=== PATIENT | female | born 1980 | race African-American/Black ===

== ENCOUNTER → 2016-09-19 | Outpatient (CLI) | payer OTHER ==
[~2016-09-19] MED LIST: ALPR-411 PO; CEFD300C2 PO; CYCL10TA6 PO; LEVO500T78 PO; METH1TAB81 PO; METR-162 PO; MULT-506 PO; OMEP20CA59 PO; OMEP40CA PO; OMEP40CA41 PO; OXYC1TAB3 PO; PROB1TAB16 PO; RANI300T2 PO; SULF800T23 PO; VNTHFA/IN INH; ZNTT/150 PO
[2016-09-19 13:20] LABS: BASO % 0.4 %; BASO ABS # 0.02 K/uL (0-0.2); COMPLETE YES; HEMATOCRIT 36.3 % (37-47); LYMPH % 43.9 %; LYMPH ABS # 2.21 K/uL (1.2-3.4); MEAN CORPUSCULAR HEMOGLOBIN 30.1 pg (25-34); MEAN CORPUSCULAR HGB CONC 33.1 g/dl (32-36); MEAN PLATELET VOLUME 11.3 fL (7.4-10.4); MONO % 6.4 %; NEUT % 47.3 %; PLATELET COUNT 201 K/uL (130-400); RED BLOOD COUNT 3.99 M/uL (4.2-5.4); WHITE BLOOD COUNT 5.03 K/uL (4.8-10.8)
[2016-09-19 13:54] LABS: BLOOD UREA NITROGEN 12 mg/dl (7-18); CREATININE 0.92 mg/dl (0.60-1.20); GLUCOSE 86 mg/dl (70-99)
[2016-09-19 13:55] LABS: AST/SGOT 10 U/L (15-37); BUN/CREATININE RATIO 12.9 (10-20); CALCIUM 8.3 mg/dl (8.5-10.1); CARBON DIOXIDE 28 mmol/L (21-32); CHLORIDE 108 mmol/L (98-107); POTASSIUM 4.3 mmol/L (3.5-5.1); SODIUM 141 mmol/L (136-145)
[2016-09-19 14:09] LABS: ALB/GLOB RATIO 0.9 (0.9-2); ALKALINE PHOSPHATASE 66 U/L (45-117); ALT/SGPT 24 U/L (12-78)
== END | disposition home or self-care (01) ==
LOC: C.LAB1850 11:56
PROVIDERS: ATTEND Internal Medicine
DX: Z85.3 Personal history of malignant neoplasm of breast (principal); D64.9 Anemia, unspecified

== ENCOUNTER 2016-10-13 09:02 | Emergency (ER) | payer OTHER ==
[~2016-10-13] VITALS: Ht 167.6 cm; Wt 82.6 kg
[~2016-10-13 09:02] MED LIST changes: -ALPR-411 PO; -CEFD300C2 PO; -CYCL10TA6 PO; -LEVO500T78 PO; -METH1TAB81 PO; -METR-162 PO; -MULT-506 PO; -OMEP20CA59 PO; -OMEP40CA41 PO; -OXYC1TAB3 PO; -PROB1TAB16 PO; -SULF800T23 PO; -VNTHFA/IN INH; -ZNTT/150 PO
[2016-10-13 09:13] VITALS: TEMP 36.8; Ht 167.6 cm; Wt 82.6 kg
[2016-10-13] MEDS ORDERED: SODIUM CHLORIDE 0.9% 1000ML 1,000 ML IV STA ×2 (09:34)
[2016-10-13] MEDS ORDERED: KETOROLAC TROMETHAMINE 30 MG/ML VIAL IV STA (09:34)
--- NOTE | 2016-10-13 09:43 | EMERGENCY ROOM VISIT NOTE ---
History Report prepared by Flora: Cristiano José Under the Supervision of: Dr. Chetan Alegria M.D. First contact with patient: 09:31 Chief Complaint: ABDOMINAL PAIN Stated Complaint: EXTREME ABD PAIN AND NAUSEA Nursing Triage Summary: Pt presents with lower abd pain/cramping with nausea and "a little diarrhea". Sx began yesterday. Currently has menstrual cycle, "this feels different then period cramps. I've been taking Tylenol." History of Present Illness The patient is a 36 year old female who presents to the Emergency Room with complaints of constant lower abdominal pain since yesterday. The pain is described as extreme and radiates to her back. She also complains of nausea but she has not vomited. She also feels some pressure with urination and frequency. The patient started her menstrual period yesterday. She initially thought that her pain was secondary to menstrual cramps, however that pain has never been this severe. Her pain was not relieved with Tylenol, which usually works for menstrual pain. The patient denies coughs, congestion, or other symptoms. She has a history of breast cancer and ovarian cysts. Her last ovarian cyst was over one year ago. She has a history of laparoscopy but no other surgeries of the abdomen or pelvis. Her mother has history of endometriosis but the patient does not. She has no known allergies. Source of History: patient Onset: yesterday Position: abdomen (lower) Symptom Intensity: extreme Timing: constant Associated Symptoms: + nausea, + urinary symptoms, No cough, No vomiting Review of Systems See HPI for pertinent positives & negatives. A total of 10 systems reviewed and were otherwise negative. Past Medical & Surgical Medical Problems: (1) ACUTE CHEMICAL CONJUNCTIVITIS (2) Asthma (3) Breast cancer (4) Bronchitis (5) Gastroesophageal reflux disease (6) History of - hypertension (7) History of - pneumonia (8) Mononucleosis (9) OVARIAN CYST NEC/NOS (10) Rhabdomyolysis (11) Urinary tract infection Family History FHx: cancer Social History Smoking Status: Never Smoker Alcohol Use: none Drug Use: none Marital Status: Housing Status: lives with family Occupation Status: employed Current/Historical Medications Scheduled Probiotic Product (Probiotic), 1 TAB PO DAILY Ranitidine (Zantac), 300 MG PO HS Scheduled PRN Alprazolam (Xanax), 0.5 MG PO Q8 PRN for Anxiety/Insomnia Cyclobenzaprine Hcl (Flexeril), 10 MG PO TID PRN for Muscle Spasms Oxycodone Ir (Roxicodone Ir), 1 TAB PO Q4H PRN for Pain Allergies Coded Allergies: No Known Allergies (Unverified , 10/13/16) Physical Exam Vital Signs Date Time Temp Pulse Resp B/P Pulse Ox O2 Delivery O2 Flow Rate FiO2 10/13/16 12:53 74 18 124/68 98 Room Air 10/13/16 11:01 61 16 122/63 99 Room Air 10/13/16 09:13 36.8 73 18 114/70 98 Room Air Physical Exam GENERAL: Patient is in mild distress secondary to pain. HEENT: No acute trauma, normocephalic atraumatic, mucous membranes are dry, no nasal congestion, no scleral icterus. NECK: No stridor, no adenopathy, no meningismus, trachea is midline. LUNGS: Clear to auscultation bilaterally, no wheeze, no rhonchi, breath sounds equal. HEART: Without murmurs gallops or rubs, regular rate and rhythm. ABDOMEN: Soft, moderate tenderness to the lower abdomen / pelvis bilaterally, bowel sounds positive, no hernias, no peritonitis. EXTREMITIES: No cyanosis or edema, full range of motion of all the joints without pain or difficulty, no signs for acute trauma. NEUROLOGIC: Oriented x 3, no acute motor or sensory deficits, no focal weakness. SKIN: No rash, no jaundice, no diaphoresis. Medical Decision & Procedures ER Provider Diagnostic Interpretation: Radiology results as stated below per my review and radiologist interpretation: EXAMINATION: PELVIC ULTRASOUND (transabdominal and endovaginal scanning) CLINICAL HISTORY: Pain, nausea, vomiting, diarrhea. COMPARISON STUDY: 01/21/2016 FINDINGS: The uterus measured 12.3 x 5.7 x 6.1 cm there is a 2 cm left-sided fibroid.. The endometrial stripe measured 5 mm. The right ovary measured 36 x 65 x 31 mm. There is a 29 x 49 x 27 mm cyst containing a few septations.. The left ovary measured 15 x 41 x 15 mm.. There is no ultrasonographic evidence of ovarian torsion. It should be noted that ovarian torsion can be present with normal Doppler ultrasonographic findings. There was no evidence of pathologic free pelvic fluid. IMPRESSION: 1. Stable 2 cm left-sided uterine fibroid 2. 49 mm right ovarian cystic lesion containing a few septations. In a premenopausal patient, this is likely benign. 3. Ultrasonographically normal left ovary Electronically signed by: Melvin Ahmadi M.D. 10/13/2016 10:58 AM Dictated Date/Time: 10/13/2016 10:51 AM Laboratory Results 10/13/16 09:32 Red Blood Count 4.14, Mean Corpuscular Volume 90.8, Mean Corpuscular Hemoglobin 30.0, Mean Corpuscular Hemoglobin Concent 33.0, Mean Platelet Volume 10.4, Neutrophils (%) (Auto) 51.9, Lymphocytes (%) (Auto) 40.1, Monocytes (%) (Auto) 5.7, Eosinophils (%) (Auto) 2.1, Basophils (%) (Auto) 0.2, Neutrophils # (Auto) 2.99, Lymphocytes # (Auto) 2.31, Monocytes # (Auto) 0.33, Eosinophils # (Auto) 0.12, Basophils # (Auto) 0.01 10/13/16 09:32 Test 10/13/16 09:32 10/13/16 11:47 White Blood Count 5.76 K/uL (4.8-10.8) Red Blood Count 4.14 M/uL (4.2-5.4) Hemoglobin 12.4 g/dL (12.0-16.0) Hematocrit 37.6 % (37-47) Mean Corpuscular Volume 90.8 fL (80-100) Mean Corpuscular Hemoglobin 30.0 pg (25-34) Mean Corpuscular Hemoglobin Concent 33.0 g/dl (32-36) Platelet Count 225 K/uL (130-400) Mean Platelet Volume 10.4 fL (7.4-10.4) Neutrophils (%) (Auto) 51.9 % Lymphocytes (%) (Auto) 40.1 % Monocytes (%) (Auto) 5.7 % Eosinophils (%) (Auto) 2.1 % Basophils (%) (Auto) 0.2 % Neutrophils # (Auto) 2.99 K/uL (1.4-6.5) Lymphocytes # (Auto) 2.31 K/uL (1.2-3.4) Monocytes # (Auto) 0.33 K/uL (0.11-0.59) Eosinophils # (Auto) 0.12 K/uL (0-0.5) Basophils # (Auto) 0.01 K/uL (0-0.2) RDW Standard Deviation 48.5 fL (36.4-46.3) RDW Coefficient of Variation 14.4 % (11.5-14.5) Immature Granulocyte % (Auto) 0.0 % Immature Granulocyte # (Auto) 0.00 K/uL (0.00-0.02) Anion Gap 6.0 mmol/L (3-11) Est Creatinine Clear Calc Drug Dose 87.0 ml/min Estimated GFR () 88.1 Estimated GFR (Non- 76.0 BUN/Creatinine Ratio 14.5 (10-20) Calcium Level 9.1 mg/dl (8.5-10.1) Total Bilirubin 0.4 mg/dl (0.2-1) Aspartate Amino Transf (AST/SGOT) 7 U/L (15-37) Alanine Aminotransferase (ALT/SGPT) 32 U/L (12-78) Alkaline Phosphatase 73 U/L (45-117) Total Protein 7.7 gm/dl (6.4-8.2) Albumin 3.5 gm/dl (3.4-5.0) Globulin 4.2 gm/dl (2.5-4.0) Albumin/Globulin Ratio 0.8 (0.9-2) Lipase 128 U/L (73-393) Human Chorionic Gonadotropin, Qual NEG (NEG) Urine Color RASHIDA Urine Appearance CLOUDY (CLEAR) Urine pH 5.0 (4.5-7.5) Urine Specific [place] 1.020 (1.000-1.030) Urine Protein NEG (NEG) Urine Glucose (UA) NEG (NEG) Urine Ketones TRACE (NEG) Urine Occult Blood 3+ (NEG) Urine Nitrite NEG (NEG) Urine Bilirubin NEG (NEG) Urine Urobilinogen NEG (NEG) Urine Leukocyte Esterase MODERATE (NEG) Urine WBC (Auto) >30 /hpf (0-5) Urine RBC (Auto) >30 /hpf (0-4) Urine Hyaline Casts (Auto) 1-5 /lpf (0-5) Urine Epithelial Cells (Auto) >30 /lpf (0-5) Urine Bacteria (Auto) 1+ (NEG) Urine Renal Epithelial Cells /lpf (0-5) Laboratory results reviewed by me. Medications Administered Medications (Trade) Dose Ordered Sig/Claudia Route Start Time Stop Time Status Last Admin Dose Admin Ondansetron HCl 4 mg 4 mg ONE ONCE PO 10/13/16 09:45 10/13/16 09:46 DC 10/13/16 09:43 4 MG Sodium Chloride 1,000 ml @ 200 mls/hr Q5H STAT IV 10/13/16 09:34 10/13/16 14:00 DC 10/13/16 11:02 200 MLS/HR Sodium Chloride (Nss 1000ml) 1,000 ml @ 999 mls/hr Q1H1M STAT IV 10/13/16 09:34 10/13/16 10:34 DC 10/13/16 09:45 999 MLS/HR Morphine Sulfate (MoRPHine SULFATE INJ) 4 mg Q30M PRN IV 10/13/16 09:45 10/13/16 14:00 DC 10/13/16 12:03 4 MG Ketorolac Tromethamine (Toradol Inj) 30 mg NOW STAT IV 10/13/16 09:34 10/13/16 09:38 DC 10/13/16 09:45 30 MG ED Course 0933: The patient was evaluated in room B12b. A complete history and physical exam was performed. 0934: Toradol 30 mg IV, NSS 1000 ml @ 999 mls/hr, NSS 1000 ml @ 200 mls/hr. 0945: Morphine Sulfate 4 mg IV, Zofran Odt 4 mg PO. 1148: The patient looks much more comfortable. She will give a urine sample.\\ 1252: The prescription drug monitoring program was evaluated for this patient. 1305: Reevaluated the patient. Discussed results and discharge instructions: She verbalized understanding and agreement. The patient is ready for discharge. Medical Decision Differential diagnosis includes menstrual cramps, , dehydration, uterine spasm, ovarian cyst, ovarian torsion, UTI, dehydration, appendicitis, PID. There is no leukocytosis or concerning anemia. No significant electrolyte abnormality or kidney failure. There is no hepatitis or pancreatitis. Urinalysis shows contamination, no obvious infection, urine culture is pending. Pelvic ultrasound shows a right sided ovarian cyst, no evidence for ovarian torsion. No significant free pelvic fluid seen. testing was negative. The patient received IV saline, IV Toradol, IV morphine and IV Zofran, she is more comfortable. The patient is likely having pain secondary to her menstrual cycle coupled with the ovarian cyst. Certainly, she may have some endometriosis. She is nontoxic , she is not febrile. She looks well since having her pain controlled. She is being discharged with OB follow-up. She is going to use a few oxycodone for severe pain, Tylenol and heat were suggested, she was given a few Flexeril which have helped her in the past when she has had issues similar to today's. The patient was encouraged to return for worsening symptoms or complaints. We will call her with any positive urine culture results. [place] Drug Monitoring Program Search Results: patient reviewed within database, no issues identified Impression Primary Impression: Lower abdominal pain Additional Impressions: Pelvic cramping Ovarian cyst Scribe Attestation The scribe's documentation has been prepared under my direction and personally reviewed by me in its entirety. I confirm that the note above accurately reflects all work, treatment, procedures, and medical decision making performed by me. Departure Information Dispostion Home / Self-Care Prescriptions Cyclobenzaprine Hcl (FLEXERIL) 10 Mg Tab 10 MG PO TID Y for Muscle Spasms, #10 TAB Prov: Chetan Alegria M.D. 10/13/16 Oxycodone Ir (Roxicodone Ir) 5 Mg Tab 1 TAB PO Q4H Y for Pain, #10 TAB Prov: Chetan Alegria M.D. 10/13/16 Referrals RV. Hernández MD (PCP) Forms Call Back Authorization, HOME CARE DOCUMENTATION FORM, IMPORTANT VISIT INFORMATION Patient Instructions My [facility] Additional Instructions heat may help call ob and set up an appt for a recheck of the cyst oxy ir 1 tab every 4 hours for severe pain may use tylenol for pain as well flexeril 1 tab up to 3x per day for muscle spasm return for worsening symptoms, vomiting or fever Problem Qualifiers
[2016-10-13] MEDS ORDERED: ONDANSETRON 4MG OD TAB PO ONE (09:45)
[2016-10-13] MEDS: MoRPHine SULFATE 4 MG/ML 1 ML CARP\\VIAL IV PRN ×4 (09:45→12:03)
[2016-10-13] MEDS ORDERED: PROB1TAB16 PO (09:58)
[2016-10-13 09:59] LABS: BASO % 0.2 %; BASO ABS # 0.01 K/uL (0-0.2); COMPLETE YES; EOS % 2.1 %; HEMATOCRIT 37.6 % (37-47); LYMPH % 40.1 %; LYMPH ABS # 2.31 K/uL (1.2-3.4); MEAN CELL VOLUME 90.8 fL (80-100); MEAN PLATELET VOLUME 10.4 fL (7.4-10.4); MONO % 5.7 %; NEUT % 51.9 %; PLATELET COUNT 225 K/uL (130-400); RED BLOOD COUNT 4.14 M/uL (4.2-5.4); WHITE BLOOD COUNT 5.76 K/uL (4.8-10.8)
[2016-10-13 10:19] LABS: BUN/CREATININE RATIO 14.5 (10-20); CALCIUM 9.1 mg/dl (8.5-10.1); CREATININE 0.95 mg/dl (0.60-1.20); POTASSIUM 4.1 mmol/L (3.5-5.1); PREG INTERNAL NEGATIVE QC NEG CLEAR BACKGROUND; PREG INTERNAL POSITIVE QC POS CONTROL LINE
[2016-10-13 10:22] LABS: ALB/GLOB RATIO 0.8 (0.9-2)
--- NOTE | 2016-10-13 10:59 | DIAGNOSTIC IMAGING REPORT ---
EXAMINATION: PELVIC ULTRASOUND (transabdominal and endovaginal scanning) CLINICAL HISTORY: Pain, nausea, vomiting, diarrhea. COMPARISON STUDY: 01/21/2016 FINDINGS: The uterus measured 12.3 x 5.7 x 6.1 cm there is a 2 cm left-sided fibroid.. The endometrial stripe measured 5 mm. The right ovary measured 36 x 65 x 31 mm. There is a 29 x 49 x 27 mm cyst containing a few septations.. The left ovary measured 15 x 41 x 15 mm.. There is no ultrasonographic evidence of ovarian torsion. It should be noted that ovarian torsion can be present with normal Doppler ultrasonographic findings. There was no evidence of pathologic free pelvic fluid. IMPRESSION: 1. Stable 2 cm left-sided uterine fibroid 2. 49 mm right ovarian cystic lesion containing a few septations. In a premenopausal patient, this is likely benign. 3. Ultrasonographically normal left ovary Electronically signed by: Melvin Ahmadi M.D. 10/13/2016 10:58 AM Dictated Date/Time: 10/13/2016 10:51 AM
[2016-10-13 12:16] LABS: URINE APPEARANCE CLOUDY (CLEAR); URINE BILIRUBIN NEG (NEG); URINE EPITHELIAL CELL AUTO >30 /lpf (0-5); URINE NITRITE NEG (NEG); UROBILINOGEN NEG (NEG); ZZUR CULT IF INDIC CLEAN CATCH YES
[2016-10-13 12:41] LABS: MANUAL MICROSCOPIC REQUIRED? NO; REVIEW REQ? YES; URINE COLOR AMBER
[2016-10-13 12:53] VITALS: BP 124/68; PULSE 74; O2SAT 98
[2016-10-13] MEDS ORDERED: OXYC1TAB3 PO (13:12)
[2016-10-13] MEDS ORDERED: CYCL10TA6 PO (13:12)
[2017-02-14] MEDS ORDERED: LEVO500T78 PO (11:01)
[2017-02-14] MEDS ORDERED: METH1TAB81 PO (11:01)
[2017-04-21] MEDS ORDERED: VNTHFA/IN INH (11:01)
[2017-04-21] MEDS ORDERED: ZNTT/150 PO (11:01)
[2017-04-21] MEDS ORDERED: OMEP40CA41 PO (11:01)
[2017-04-21] MEDS ORDERED: ALPR-411 PO (14:11)
== END 2016-10-13 13:21 | disposition home or self-care (01) ==
LOC: C.EDB 09:03
DX: R10.30 Lower abdominal pain, unspecified (principal); N83.201 Unspecified ovarian cyst, right side; J45.909 Unspecified asthma, uncomplicated; Z85.3 Personal history of malignant neoplasm of breast; K21.9 Gastro-esophageal reflux disease without esophagitis; I10 Essential (primary) hypertension; Z87.01 Personal history of pneumonia (recurrent); Z87.440 Personal history of urinary (tract) infections; Z80.9 Family history of malignant neoplasm, unspecified; Z79.899 Other long term (current) drug therapy

== ENCOUNTER 2016-12-13 21:58 | Emergency (ER) | payer OTHER ==
[~2016-12-13] VITALS: Ht 167.6 cm; Wt 79.1 kg
[~2016-12-13 21:58] MED LIST changes: +ALPR-411 PO; -OMEP40CA PO; +OXYC1TAB3 PO; +PROB1TAB16 PO
[2016-12-13 22:00] VITALS: TEMP 37; Ht 167.6 cm; Wt 79.1 kg
[2016-12-13] MEDS ORDERED: SODIUM CHLORIDE 0.9% 1000ML 1,000 ML IV STA ×2 (22:41)
[2016-12-13] MEDS ORDERED: KETOROLAC TROMETHAMINE 30 MG/ML VIAL IV STA (22:41)
[2016-12-13] MEDS ORDERED: DiphenhydrAMINE HCL 50 MG/ML VIAL IV STA (22:41)
[2016-12-13] MEDS ORDERED: METOCLOPRAMIDE HCL INJ 5 MG/ML 2 ML VIAL IV STA (22:41)
[2016-12-13 23:16] LABS: BASO % 0.3 %; BASO ABS # 0.02 K/uL (0-0.2); COMPLETE YES; EOS % 2.4 %; HEMATOCRIT 39.3 % (37-47); IG% 0.3 %; LYMPH ABS # 3.08 K/uL (1.2-3.4); MEAN CELL VOLUME 90.6 fL (80-100); MEAN CORPUSCULAR HEMOGLOBIN 30.4 pg (25-34); MEAN CORPUSCULAR HGB CONC 33.6 g/dl (32-36); MEAN PLATELET VOLUME 10.6 fL (7.4-10.4); MONO % 6.6 %; NEUT % 47.4 %; PLATELET COUNT 266 K/uL (130-400); RED BLOOD COUNT 4.34 M/uL (4.2-5.4); WHITE BLOOD COUNT 7.16 K/uL (4.8-10.8)
[2016-12-13 23:25] LABS: URINE APPEARANCE CLOUDY (CLEAR); URINE BILIRUBIN NEG (NEG); URINE COLOR YELLOW; URINE EPITHELIAL CELL AUTO >30 /lpf (0-5); URINE NITRITE NEG (NEG); URINE SPECIFIC GRAVITY 1.027 (1.000-1.030); UROBILINOGEN NEG (NEG); ZZUR CULT IF INDIC CLEAN CATCH YES
[2016-12-13 23:33] LABS: MANUAL MICROSCOPIC REQUIRED? NO; REVIEW REQ? YES
[2016-12-13 23:40] LABS: BUN/CREATININE RATIO 12.7 (10-20); CALCIUM 9.5 mg/dl (8.5-10.1); CREATININE 1.1 mg/dl (0.60-1.20); POTASSIUM 3.9 mmol/L (3.5-5.1)
[2016-12-13 23:43] LABS: PREG INTERNAL NEGATIVE QC NEG CLEAR BACKGROUND; PREG INTERNAL POSITIVE QC POS CONTROL LINE
[2016-12-14] MEDS ORDERED: SEPTRA DS HOME PACK 1 EA VIAL PO ONE (00:45)
[2016-12-14] MEDS ORDERED: SULF800T23 PO (00:53)
[2016-12-14 01:08] VITALS: BP 114/65; PULSE 87; O2SAT 100
--- NOTE | 2016-12-14 02:26 | EMERGENCY ROOM VISIT NOTE ---
History First contact with patient: 22:37 Chief Complaint: PELVIC PAIN Stated Complaint: EXTREME ABD,PELVIC PAIN, NAUSEA History of Present Illness The patient is a 36 year old female who presents to the Emergency Room with complaints of nausea and suprapubic pain for the past day he was history of ovarian cyst and symptoms for similar. Patient follows Dr. Su. Pain currently 8 out of 10. Nothing makes it better or worse. Patient denies chest pain, dyspnea, fever, chills, cough, congestion, back pain, vaginal itching or discharge. She does not feel at risk for STI's and is in a monogamous relationship and does not want testing. Review of Systems See HPI for pertinent positives & negatives. A total of 10 systems reviewed and were otherwise negative. Past Medical/Surgical History Medical Problems: (1) ACUTE CHEMICAL CONJUNCTIVITIS (2) Asthma (3) Breast cancer (4) Bronchitis (5) Gastroesophageal reflux disease (6) History of - hypertension (7) History of - pneumonia (8) Mononucleosis (9) OVARIAN CYST NEC/NOS (10) Rhabdomyolysis (11) Urinary tract infection Family History FHx: cancer Social History Smoking Status: Never Smoker Alcohol Use: none Drug Use: none Marital Status: Housing Status: lives with family Occupation Status: employed Current/Historical Medications Scheduled Probiotic Product (Probiotic), 1 TAB PO DAILY Ranitidine (Zantac), 300 MG PO HS Sulfa/Trimethoprim (Bactrim Ds 800MG/160MG), 1 TAB PO BID Scheduled PRN Alprazolam (Xanax), 0.5 MG PO Q8 PRN for Anxiety/Insomnia Allergies Coded Allergies: No Known Allergies (Unverified , 12/13/16) Physical Exam Vital Signs Date Time Temp Pulse Resp B/P (MAP) Pulse Ox O2 Delivery O2 Flow Rate FiO2 12/14/16 01:08 87 18 114/65 100 Room Air 12/13/16 22:00 37.0 85 18 115/78 100 Room Air Pain Rating (0-10): 6.0 Physical Exam VITALS: Vitals are noted on the nurse's note and reviewed by myself. Vital signs stable. GENERAL: Pleasant female, in no acute distress, nondiaphoretic, well-developed well-nourished. SKIN: The skin was without rashes, erythema, edema, or bruising. There is no tenting of the skin. Capillary reflex less than 2 seconds. HEAD: Normocephalic atraumatic. EARS: External auditory canals clear, tympanic membranes pearly barrientos without erythema or effusion bilaterally. EYES: Pupils equal round and reactive to light and accommodation. Conjunctivae without injection, sclerae without icterus. Extraocular movements intact. NOSE: Patent, turbinates without inflammation or discharge. MOUTH: Mucous membranes moist. Pharynx without erythema or exudate. Uvula midline. Airway patent. Tongue does not deviate. NECK: Supple without nuchal rigidity. No lymphadenopathy. No thyromegaly. Cervical spine is nontender. No JVD. HEART: Regular rate and rhythm without murmurs gallops or rubs. LUNGS: Clear to auscultation bilaterally without wheezes, rales or rhonchi. No dullness to percussion. No retractions or accessory muscle use. ABDOMEN: Positive bowel sounds x 4. Normal tympanic percussion. Soft, tender to palpation suprapubic area, no CVA tenderness, without masses or organomegaly. Carney sign negative. No guarding or rebound tenderness. MUSCULOSKELETAL: No muscle atrophy, erythema, or edema noted. NEURO: Patient was alert and oriented to person place and time. Normal sensation to light and sharp touch. No focal neurological deficits. Medical Decision & Procedures Laboratory Results 12/13/16 22:55 Red Blood Count 4.34, Mean Corpuscular Volume 90.6, Mean Corpuscular Hemoglobin 30.4, Mean Corpuscular Hemoglobin Concent 33.6, Mean Platelet Volume 10.6, Neutrophils (%) (Auto) 47.4, Lymphocytes (%) (Auto) 43.0, Monocytes (%) (Auto) 6.6, Eosinophils (%) (Auto) 2.4, Basophils (%) (Auto) 0.3, Neutrophils # (Auto) 3.40, Lymphocytes # (Auto) 3.08, Monocytes # (Auto) 0.47, Eosinophils # (Auto) 0.17, Basophils # (Auto) 0.02 12/13/16 22:55 Test 12/13/16 22:55 White Blood Count 7.16 K/uL (4.8-10.8) Red Blood Count 4.34 M/uL (4.2-5.4) Hemoglobin 13.2 g/dL (12.0-16.0) Hematocrit 39.3 % (37-47) Mean Corpuscular Volume 90.6 fL (80-100) Mean Corpuscular Hemoglobin 30.4 pg (25-34) Mean Corpuscular Hemoglobin Concent 33.6 g/dl (32-36) Platelet Count 266 K/uL (130-400) Mean Platelet Volume 10.6 fL (7.4-10.4) Neutrophils (%) (Auto) 47.4 % Lymphocytes (%) (Auto) 43.0 % Monocytes (%) (Auto) 6.6 % Eosinophils (%) (Auto) 2.4 % Basophils (%) (Auto) 0.3 % Neutrophils # (Auto) 3.40 K/uL (1.4-6.5) Lymphocytes # (Auto) 3.08 K/uL (1.2-3.4) Monocytes # (Auto) 0.47 K/uL (0.11-0.59) Eosinophils # (Auto) 0.17 K/uL (0-0.5) Basophils # (Auto) 0.02 K/uL (0-0.2) RDW Standard Deviation 47.0 fL (36.4-46.3) RDW Coefficient of Variation 14.2 % (11.5-14.5) Immature Granulocyte % (Auto) 0.3 % Immature Granulocyte # (Auto) 0.02 K/uL (0.00-0.02) Urine Color YELLOW Urine Appearance CLOUDY (CLEAR) Urine pH 5.0 (4.5-7.5) Urine Specific [place] 1.027 (1.000-1.030) Urine Protein NEG (NEG) Urine Glucose (UA) NEG (NEG) Urine Ketones TRACE (NEG) Urine Occult Blood NEG (NEG) Urine Nitrite NEG (NEG) Urine Bilirubin NEG (NEG) Urine Urobilinogen NEG (NEG) Urine Leukocyte Esterase LARGE (NEG) Urine WBC (Auto) >30 /hpf (0-5) Urine RBC (Auto) 0-4 /hpf (0-4) Urine Hyaline Casts (Auto) 0 /lpf (0-5) Urine Epithelial Cells (Auto) >30 /lpf (0-5) Urine Bacteria (Auto) 2+ (NEG) Urine Pathogenic Casts /lpf (0) Anion Gap 6.0 mmol/L (3-11) Est Creatinine Clear Calc Drug Dose 73.6 ml/min Estimated GFR () 73.8 Estimated GFR (Non- 63.6 BUN/Creatinine Ratio 12.7 (10-20) Calcium Level 9.5 mg/dl (8.5-10.1) Human Chorionic Gonadotropin, Qual NEG (NEG) Medications Administered Medications (Trade) Dose Ordered Sig/Claudia Route Start Time Stop Time Status Last Admin Dose Admin Ketorolac Tromethamine (Toradol Inj) 30 mg NOW STAT IV 12/13/16 22:41 12/13/16 22:44 DC 12/13/16 23:24 30 MG Metoclopramide HCl (Reglan Inj) 10 mg NOW STAT IV 12/13/16 22:41 12/13/16 22:44 DC 12/13/16 23:23 10 MG Diphenhydramine HCl (Benadryl Inj) 25 mg NOW STAT IV 12/13/16 22:41 12/13/16 22:44 DC 12/13/16 23:23 25 MG Sodium Chloride 1,000 ml @ 999 mls/hr Q1H1M STAT IV 12/13/16 22:41 12/13/16 23:41 DC 12/13/16 23:23 999 MLS/HR Sodium Chloride 1,000 ml @ 125 mls/hr Q8H STAT IV 12/13/16 22:41 12/14/16 01:47 DC 12/13/16 23:24 125 MLS/HR ED Course Prior records/ancillary studies reviewed. Triage Nursing notes reviewed. Additional history obtained from family The patient's history was concerning for suprapubic abdominal pain. Differential diagnosis: Etiologies such as cyst, torsion, PID, appendicitis, diverticulitis, PUD, biliary pathology, UTI, pancreatitis, obstruction, mesenteric ischemia, aortic pathology, infections, inflammatory bowel disease, renal colic, as well as others were entertained. Physical examination findings: As above. ER treatment provided: Bactrim, Toradol, Reglan, Benadryl On reassessment the patient felt better. Diagnostics interpreted by me: The labs revealed urine concerning for possible infection and sent for culture Imaging studies: Ultrasound concerning for ovarian cyst that is smaller than the cyst seen Last month and recurrent fibroid per radiology blood flow to both ovaries Exam and history seem consistent with ovarian cyst that is resolving with UTI. Patient was started on antibiotics. She is advised to follow-up with her OB for repeat ultrasound and for further evaluation and workup if needed. Urine culture was placed. Patient did not have acute abdomen on exam. She is well- appearing. She is tolerate fluids. She is advised to return to the ER immediately for abdominal pain, fevers, vomiting, worsening signs or symptoms or as needed. By the evaluation outlined above emergent etiologies such as appendicitis, diverticulitis, PUD, biliary pathology, pancreatitis, obstruction , mesenteric ischemia, aortic pathology, infections, inflammatory bowel disease , renal colic, as well as others were deemed relatively unlikely. The pt informed about the findings as listed above. All questions were answered and pleased with the treatment. Return instructions were outlined and the patient was discharged in stable condition. Outpatient prescription management: Bactrim Referral: The patient was referred back to their primary care physician and PHARMACY RESOURCE TECH for follow-up in 2 to 3 days for a recheck of the current condition. Medical Decision As above Impression Primary Impression: UTI (urinary tract infection) Additional Impression: Ovarian cyst Departure Information Dispostion Home / Self-Care Condition GOOD Prescriptions Sulfa/Trimethoprim (Bactrim Ds 800MG/160MG) Tab 1 TAB PO BID for 2 Days, #4 TAB Prov: Helen Avila .PATRICE 12/14/16 Forms WORK / SCHOOL INSTRUCTIONS, HOME CARE DOCUMENTATION FORM, IMPORTANT VISIT INFORMATION Patient Instructions UTI, [facility], ED Cyst Ovarian Additional Instructions Repeat pelvic ultrasound in 6 weeks for resolution of cyst. Trimethoprim-Sulfamethoxazole(Bactrim DS): Take one pill twice daily for 3 days for your urine infection. All antibiotics can cause diarrhea. If this occurs and you feel worse or it does not resolve in 1-2 days follow up with your doctor or return to the Emergency Department as this could be signs of serious underlying problems. Any medication can cause an allergic reaction, stop the pills immediately and return to the ER for rash, hives, breathing difficulties, or swelling. Zofran 4 mg: Take one every six hours as needed for nausea. Avoid alcohol, operating machinery or dangerous equipment, working on ladders or roofs, DRIVING , or situations where being under the influence may be dangerous. Ibuprofen(Motrin, Advil) may be used for fever or pain. Use 600mg every six hours as needed. Take with food. Avoid using more than 2400mg in a 24 hour period. Do not use 2400mg per day for more than three consecutive days without physician direction. Prolonged inappropriate use can lead to stomach upset or ulcers. (AND/OR) Acetaminophen(Tylenol) may be used for fever or pain. Use 1000mg every six hours as needed. Avoid using more than 3000mg in a 24 hour period. Rest and drink plenty of fluids as tolerated. Slow sips of water or sports drinks are recommended instead of large amounts all at once. Continue current medications. Return to the ER immediately for worsening or persistent abdominal/back pain, vomiting, fevers, worsening of your condition, or as needed. Follow up with your primary physician and PHARMACY RESOURCE TECH within 2-3 days for a recheck of the current condition. Problem Qualifiers Primary Impression: UTI (urinary tract infection) Urinary tract infection type: acute cystitis Hematuria presence: without hematuria Qualified Codes: N30.00 - Acute cystitis without hematuria
--- NOTE | 2016-12-14 06:48 | DIAGNOSTIC IMAGING REPORT ---
EXAMINATION: PELVIC ULTRASOUND CLINICAL HISTORY: pelvic pain, hx cysts COMPARISON STUDY: 10/13/2016 FINDINGS: The uterus measured 10.5 cm. 2.2 cm uterine fibroid.. The endometrial stripe measured 7 mm. The right ovary measured 3.9 cm containing a 2.8 cm complex cyst. This is somewhat diminished in size in the prior exam. The left ovary measured 2.9 cm with normal vascular flow. There is no ultrasonographic evidence of ovarian torsion. It should be noted that ovarian torsion can be present with normal Doppler ultrasonographic findings. There was no evidence of pathologic free pelvic fluid. IMPRESSION: 1. Small stable uterine fibroid. 2. Complex right ovarian cyst mildly diminished in size compared to the prior study. Electronically signed by: Bruce Guthrie M.D. 12/14/2016 6:47 AM Dictated Date/Time: 12/14/2016 6:44 AM
[2017-02-14] MEDS ORDERED: ZNTT/150 PO (11:01)
[2017-02-14] MEDS ORDERED: VNTHFA/IN INH (11:01)
[2017-02-14] MEDS ORDERED: METH1TAB81 PO (11:01)
[2017-02-14] MEDS ORDERED: LEVO500T78 PO (11:01)
[2017-02-14] MEDS ORDERED: OMEP40CA41 PO (11:01)
== END 2016-12-14 01:09 | disposition home or self-care (01) ==
LOC: C.EDB 21:59 → C.EDC 12-14 01:09
DX: N39.0 Urinary tract infection, site not specified (principal); N83.201 Unspecified ovarian cyst, right side; J45.909 Unspecified asthma, uncomplicated; Z85.3 Personal history of malignant neoplasm of breast; K21.9 Gastro-esophageal reflux disease without esophagitis; I10 Essential (primary) hypertension; Z87.01 Personal history of pneumonia (recurrent); Z87.440 Personal history of urinary (tract) infections; Z80.9 Family history of malignant neoplasm, unspecified; Z79.899 Other long term (current) drug therapy

== ENCOUNTER → 2017-01-18 | Outpatient (CLI) | payer OTHER ==
[~2017-01-18] MED LIST changes: +LEVO500T78 PO; +METH1TAB81 PO; +MULT-506 PO; +OMEP20CA59 PO; +OMEP40CA41 PO; -OXYC1TAB3 PO; +VNTHFA/IN INH; +ZNTT/150 PO
[2017-01-21 01:57] LABS: CHLAMYDIA TRACH RNA*** NOT DETECTED (NOT DETECTED); GC (NEIS GONORRHOEAE)RNA** NOT DETECTED (NOT DETECTED)
== END | disposition home or self-care (01) ==
LOC: C.LAB1850 12:18
PROVIDERS: ATTEND Physician Assistant
DX: N88.9 Noninflammatory disorder of cervix uteri, unspecified (principal); N89.8 Other specified noninflammatory disorders of vagina; J38.2 Nodules of vocal cords

== ENCOUNTER → 2017-01-19 | Outpatient (CLI) | payer OTHER ==
[2017-01-19 15:47] LABS: URINE APPEARANCE CLEAR (CLEAR); URINE BILIRUBIN NEG (NEG); URINE COLOR YELLOW; URINE NITRITE NEG (NEG); URINE SPECIFIC GRAVITY 1.014 (1.000-1.030); UROBILINOGEN NEG (NEG); ZZUR CULT IF INDIC CLEAN CATCH NO
[2017-01-19 15:48] LABS: MANUAL MICROSCOPIC REQUIRED? NO; REVIEW REQ? NO
== END | disposition home or self-care (01) ==
LOC: C.LABSPEC 14:55
PROVIDERS: ATTEND Obstetrics & Gynecology
DX: R10.2 Pelvic and perineal pain (principal)

== ENCOUNTER 2017-02-04 09:19 | Emergency (ER) | payer OTHER ==
[~2017-02-04] VITALS: Ht 167.6 cm; Wt 71.0 kg
[~2017-02-04 09:19] MED LIST changes: -LEVO500T78 PO; -METH1TAB81 PO; -MULT-506 PO; -OMEP20CA59 PO; -OMEP40CA41 PO; -VNTHFA/IN INH; -ZNTT/150 PO
[2017-02-04 09:23] VITALS: TEMP 36.5; Ht 167.6 cm; Wt 71.0 kg
[2017-02-04] MEDS ORDERED: OMEP20CA59 PO (09:36)
[2017-02-04] MEDS ORDERED: MULT-506 PO (09:36)
--- NOTE | 2017-02-04 10:14 | DIAGNOSTIC IMAGING REPORT ---
CHEST 2 VIEWS ROUTINE HISTORY: 36 years-old Female cough, congestion acute atypical chest pain with cough and congestion. History of breast cancer. COMPARISON: Portable chest radiograph 05/31/2016 TECHNIQUE: Frontal and lateral views of the chest FINDINGS: Cardiomediastinal and hilar silhouettes are within normal limits. There is no pneumothorax, pleural effusion or focal airspace consolidation. No overt pulmonary edema. Subtle convex right curvature of the lower thoracic spine of less than 10 degrees again noted. Bones are grossly intact. IMPRESSION: No acute cardiopulmonary process. The above report was generated using voice recognition software. It may contain grammatical, syntax or spelling errors. Electronically signed by: Cameron Hernandez M.D. 02/04/2017 10:13 AM Dictated Date/Time: 02/04/2017 10:12 AM
[2017-02-04] MEDS ORDERED: VNTHFA/IN INH (10:49)
--- NOTE | 2017-02-04 10:50 | EMERGENCY ROOM VISIT NOTE ---
History First contact with patient: 09:30 Chief Complaint: SORETHROAT Stated Complaint: SORE THROAT, CP, WHITE THICK PHLEGM History of Present Illness The patient is a 36 year old female who presents to the Emergency Room with complaints of sore throat. The patient states that she has had a sore throat for 3 days. She initially thought it was due to reflux and Geyser present without relief. She states that she has had some nasal congestion and thought she may be developing a cold. She reports she has been trying to cough up phlegm because she feels she may have a "chest cold." She states she has coughed up a small amount of thick, white phlegm. Her symptoms have been gradually worsening. She reports a history of asthma and states she is out of her inhaler. She denies any difficulty breathing, chest pain, fevers, neck pain /stiffness or ear pain. Review of Systems A complete 10 point review of systems was reviewed with the patient with pertinent positives and negatives as per history of present illness. All else were negative. Past Medical/Surgical History Medical Problems: (1) ACUTE CHEMICAL CONJUNCTIVITIS (2) Asthma (3) Breast cancer (4) Bronchitis (5) Gastroesophageal reflux disease (6) History of - hypertension (7) History of - pneumonia (8) Mononucleosis (9) OVARIAN CYST NEC/NOS (10) Rhabdomyolysis (11) Urinary tract infection Family History FHx: cancer Social History Smoking Status: Never Smoker Alcohol Use: none Drug Use: none Marital Status: Housing Status: lives with family Occupation Status: employed Current/Historical Medications Scheduled Albuterol Hfa (Ventolin Hfa), 2 PUFFS INH QID Multivitamin (Multivitamin), 1 TAB PO DAILY Omeprazole (Prilosec), 40 MG PO DAILY Ranitidine (Zantac), 300 MG PO HS Scheduled PRN Alprazolam (Xanax), 0.5 MG PO Q8 PRN for Anxiety/Insomnia Physical Exam Vital Signs Date Time Temp Pulse Resp B/P (MAP) Pulse Ox O2 Delivery O2 Flow Rate FiO2 02/04/17 10:55 61 16 113/73 100 02/04/17 09:23 36.5 67 18 117/77 100 Room Air Physical Exam VITALS: Vitals are noted on the nurse's note and reviewed by myself. Vital signs stable. GENERAL: This is a 36-year-old female, in no acute distress, nondiaphoretic, well-developed well-nourished. SKIN: The skin was without rashes. EARS: External auditory canals clear, tympanic membranes pearly barrientos without erythema or effusion bilaterally. EYES: Pupils equal round and reactive to light and accommodation. Conjunctivae without injection, sclerae without icterus. NOSE: Patent, turbinates without inflammation or discharge. No sinus tenderness. MOUTH: Mucous membranes moist. Tonsils are not enlarged. Pharynx is minimally erythematous without exudate. NECK: Supple without nuchal rigidity. No lymphadenopathy. HEART: Regular rate and rhythm without murmurs gallops or rubs. LUNGS: Clear to auscultation bilaterally without wheezes, rales or rhonchi. NEURO: Patient was alert and oriented to person place and time. Medical Decision & Procedures ER Provider Diagnostic Interpretation: CHEST 2 VIEWS ROUTINE HISTORY: 36 years-old Female cough, congestion acute atypical chest pain with cough and congestion. History of breast cancer. COMPARISON: Portable chest radiograph 05/31/2016 TECHNIQUE: Frontal and lateral views of the chest FINDINGS: Cardiomediastinal and hilar silhouettes are within normal limits. There is no pneumothorax, pleural effusion or focal airspace consolidation. No overt pulmonary edema. Subtle convex right curvature of the lower thoracic spine of less than 10 degrees again noted. Bones are grossly intact. IMPRESSION: No acute cardiopulmonary process. Medications Administered Medications (Trade) Dose Ordered Sig/Claudia Route Start Time Stop Time Status Last Admin Dose Admin Albuterol (Ventolin Hfa Inhaler) 2 puffs NOW ONCE INH 02/04/17 11:00 02/04/17 11:01 DC 02/04/17 10:58 2 PUFFS Medical Decision Differential diagnosis includes strep pharyngitis, viral syndrome, acute bronchitis, pneumonia, GERD, among others. The patient is a 36-year-old female who presents today complaining of saw her throat and cold symptoms. Rapid strep swab was performed and was negative. Culture pending. Chest x-ray was unremarkable. The patient's symptoms may be related to a viral syndrome or possibly GERD. She was given a Ventolin inhaler and a prescription for Ventolin inhaler. She was encouraged to continue her omeprazole. Based on the patient's presentation and work up, I feel the patient is stable for outpatient treatment. The patient was educated to return to the emergency department for any worsening of their current condition or new/concerning symptoms. She will follow up with her PCP. Medication Reconcilliation Current Medication List: was personally reviewed by me Blood Pressure Screening Patient's blood pressure: Normal blood pressure Impression Primary Impression: Sore throat Departure Information Dispostion Home / Self-Care Condition GOOD Prescriptions Albuterol Hfa (VENTOLIN HFA) 200 Puffs/96149 Mcg Aers 2 PUFFS INH QID, #1 INHALER 1 Refill Prov: Lolis Abbott .PATRICE 02/04/17 Referrals RV. Hernández MD (PCP) Patient Instructions My [facility] Additional Instructions Use the inhaler as needed. Take the Prilosec daily as discussed. Follow-up with her primary care provider for EGD and any further evaluation. Return here with worsening or new/concerning symptoms.
[2017-02-04 10:55] VITALS: BP 113/73; PULSE 61; O2SAT 100
[2017-02-04] MEDS ORDERED: ALBUTEROL HFA 8 GM INHALER INH ONE (11:00)
[2017-02-14] MEDS ORDERED: VNTHFA/IN INH (11:01)
[2017-02-14] MEDS ORDERED: ZNTT/150 PO (11:01)
[2017-02-14] MEDS ORDERED: METH1TAB81 PO (11:01)
[2017-02-14] MEDS ORDERED: OMEP40CA41 PO (11:01)
[2017-02-14] MEDS ORDERED: LEVO500T78 PO (11:01)
== END 2017-02-04 11:03 | disposition home or self-care (01) ==
LOC: C.EDB 09:20 → C.EDA 11:03
DX: J02.9 Acute pharyngitis, unspecified (principal); J45.909 Unspecified asthma, uncomplicated; K21.9 Gastro-esophageal reflux disease without esophagitis

== ENCOUNTER → 2017-02-15 | Day surgery (SDC) | payer OTHER ==
[2017-02-14 11:05] VITALS: BMI 28.0
[~2017-02-15] VITALS: Ht 167.6 cm; Wt 79.5 kg
[~2017-02-15] MED LIST changes: +FENTANYL CITRATE INJ 50 MCG/1 ML 2 ML VIAL ONE; +LEVO500T78 PO; +LIDOCAINE HCL 2% 2 ML VIAL (20MG/ML) ONE; +METH1TAB81 PO; +MULT-506 PO; +OMEP40CA41 PO; -PROB1TAB16 PO; +PROPOFOL IV EMULSION 10 MG/ML 20 ML VIAL IV ONE; -RANI300T2 PO; +SODIUM CHLORIDE 0.9% 500ML 500 ML IV ONE; +VNTHFA/IN INH; +ZNTT/150 PO
[2017-02-15 14:38] VITALS: Ht 167.6 cm; Wt 79.5 kg
--- NOTE | 2017-02-15 14:51 | Endo History and Physical ---
History & Physical Date of Service: Feb 15, 2017. Chief Complaint: GERD Referring Physician: DR BOLAÑOS History of Present Illness 36 yo female who presents for EGD secondary to GERD. Past Medical History Reflux, Gynecological Problems, Cancer Past Surgical History Hx Cardiac Surgery: No Hx Internal Defibrillator: No Hx Pacemaker: No Hx Abdominal Surgery: Yes (LAPAROSCOPY) Hx of Implantable Prosthesis: No Hx Post-Op Nausea and Vomiting: No Hx Cancer Surgery: Yes (BILATERAL BREAST MASTECTOMY WITH IMPLANT-BASED RECON) Hx Thoracic Surgery: No Hx Orthopedic: No Hx Urinary Tract Surgery: No Family History None Social History Smoking Status: Never Smoker Hx Substance Use: No Hx Alcohol Use: No Allergies Coded Allergies: No Known Allergies (Unverified , 02/15/17) Current Medications Reported Home Medications Medications Dose Route/Sig Max Daily Dose Days Date Category Ventolin Hfa (Albuterol) 200 Puffs/01839 Mcg Aers 2-4 Puffs INH Q6H PRN 02/14/17 Reported Medrol (Methylprednisolone) 4 Mg Tab 4 Mg PO QAM 02/14/17 Reported L-Carnitine (Levocarnitine) 500 Mg Tab 1,000 Mg PO QAM 02/14/17 Reported Prilosec (Omeprazole) 40 Mg Cap 40 Mg PO QAM 02/14/17 Reported Zantac (Ranitidine HCl) 150 Mg Tab 150 Mg PO QAM 02/14/17 Reported Multivitamin (Multivitamins) Tab 1 Tab PO QAM 02/04/17 Reported Xanax (Alprazolam) 0.5 Mg Tab 0.5 Mg PO Q8 PRN 05/31/16 Reported Vital Signs Weight (Kilograms): 79.55 Height (Feet): 5 Height (Inches): 6 Physical Exam General Appearance: WD/WN, no apparent distress Respiratory/Chest: Auscultation: breath sounds normal Cardiovascular: Heart Auscultation: RRR Abdomen: Bowel Sounds: normal Inspection & Palpation: soft, non-distended, no tenderness, guarding & rebound Assessment and Plan Assessment: 36 yo female who presents for EGD secondary to GERD. Plan: Proceed with EGD.
[2017-02-15 14:54] VITALS: TEMP 36.6
--- NOTE | 2017-02-15 15:11 | GI REPORT ---
Procedure Date: 02/15/2017 2:48 PM Procedure: Upper GI endoscopy Indications: Gastro-esophageal reflux disease Medicines: Monitored Anesthesia Care Complications: No immediate complications. Estimated Blood Loss: Estimated blood loss: none. Procedure: Pre-Anesthesia Assessment: - Prior to the procedure, a History and Physical was performed, and patient medications and allergies were reviewed. The patient's tolerance of previous anesthesia was also reviewed. The risks and benefits of the procedure and the sedation options and risks were discussed with the patient. All questions were answered, and informed consent was obtained. Prior Anticoagulants: The patient has taken no previous anticoagulant or antiplatelet agents. ASA Grade Assessment: II - A patient with mild systemic disease. After reviewing the risks and benefits, the patient was deemed in satisfactory condition to undergo the procedure. After obtaining informed consent, the endoscope was passed under direct vision. Throughout the procedure, the patient's blood pressure, pulse, and oxygen saturations were monitored continuously. The Scope was introduced through the mouth, and advanced to the second part of duodenum. The upper GI endoscopy was accomplished without difficulty. The patient tolerated the procedure well. Findings: The esophagus was normal. Localized mild inflammation characterized by erythema was found in the gastric antrum. Biopsies were taken with a cold forceps for histology. The examined duodenum was normal. Impression: - Normal esophagus. - Gastritis. Biopsied. - Normal examined duodenum. Recommendation: - Resume previous diet. - Continue present medications. - Await pathology results. - Return to primary care physician as previously scheduled. Zander Alcala, 02/15/2017 3:10:58 PM This report has been signed electronically. Note Initiated On: 02/15/2017 2:48 PM I attest to the content of the Intraoperative Record and orders documented therein, exceptions below
--- NOTE | 2017-02-15 15:13 | Discharge Instructions ---
Endoscopy Patient Instructions Date / Procedure(s) Performed Feb 15, 2017. EGD Allergy Information Coded Allergies: No Known Allergies (Unverified , 02/15/17) Discharge Date / Findings Feb 15, 2017. Gastritis s/p biopsies Medication Instructions OK to resume all medications today as prescribed Reported Home Medications Medications Dose Route/Sig Max Daily Dose Days Date Category Ventolin Hfa (Albuterol) 200 Puffs/04753 Mcg Aers 2-4 Puffs INH Q6H PRN 02/14/17 Reported Medrol (Methylprednisolone) 4 Mg Tab 4 Mg PO QAM 02/14/17 Reported L-Carnitine (Levocarnitine) 500 Mg Tab 1,000 Mg PO QAM 02/14/17 Reported Prilosec (Omeprazole) 40 Mg Cap 40 Mg PO QAM 02/14/17 Reported Zantac (Ranitidine HCl) 150 Mg Tab 150 Mg PO QAM 02/14/17 Reported Multivitamin (Multivitamins) Tab 1 Tab PO QAM 02/04/17 Reported Xanax (Alprazolam) 0.5 Mg Tab 0.5 Mg PO Q8 PRN 05/31/16 Reported Provider Instructions Activity Restrictions - No exercising or heavy lifting for 24 hours. - Do not drink alcohol the day of the procedure. - Do not drive a car or operate machinery until the day after the procedure. - Do not make any important decisions or sign important papers in 24 hours after the procedure. Following Day: - Return to full activity which may include returning to work/school. Diet Start your diet with liquids and light foods (jello, soup, juice, toast). Then eat your usual diet if not nauseated. Treatment For Common After Affects For mild abdominal pain, bloating, or excessive gas: - Rest - Eat lightly - Lie on right side Follow-Up Information Follow-up with DR BOLAÑOS as scheduled Anesthesia Information What You Should Know You have had a procedure that required some medicine to reduce anxiety and discomfort. This treatment is called moderate sedation. After receiving the treatment, you may be sleepy, but you will be able to breathe on your own. The effects of the treatment may last for several hours. Follow these instructions along with Activity/Diet recommendations noted above: * Do NOT do anything where dizziness or clumsiness would be dangerous. * Rest quietly at home today, then you can be up and about tomorrow. * Have a responsible person stay with you the rest of today. * You may have had an I.V. today. If so, you may take the dressing off later today. Recommendations Call your doctor if: * Trouble breathing * Continuous vomiting for more than 24 hours * Temperature above 101 degrees * Severe abdominal pain or bloating * Pain not relieved by pain medicine ordered * There is increased drainage or redness from any incision * A large amount of rectal bleeding greater than 2-3 tablespoons. (If you had a polyp/s removed or have hemorrhoids, a small amount of blood - from the rectum is to be expected.) * You have any unanswered questions or concerns. IN THE EVENT OF A SERIOUS EMERGENCY, GO TO THE NEAREST EMERGENCY ROOM Your discharge instructions were prepared by provider Zander Alcala. Patient Instructions Signature Page Marialuisa Baldwin Patient (or Guardian) Signature/Date: I have read and understand the instructions given to me by my caregivers. Caregiver/RN/Doctor Signature/Date: The above-named patient and/or guardian has received patient instructions on this date. + Original Patient Signature Page (only) stays with chart. Please make copy for patient.
--- NOTE | 2017-02-15 15:23 | Anesthesiology Progress Note ---
Anesthesia Post Op Note Date & Time Feb 15, 2017 at 15:23 Vital Signs Pain Intensity: 0 Vital Signs Past 12 Hours Date Time Temp Pulse Resp B/P (MAP) Pulse Ox O2 Delivery O2 Flow Rate FiO2 02/15/17 15:14 81 20 116/74 (88) 97 Room Air 02/15/17 14:54 36.6 80 20 106/63 (77) 99 Room Air Notes Mental Status: alert / awake / arousable, participated in evaluation Pt Amnestic to Procedure: Yes Nausea / Vomiting: adequately controlled Pain: adequately controlled Airway Patency, RR, SpO2: stable & adequate BP & HR: stable & adequate Hydration State: stable & adequate Anesthetic Complications: no major complications apparent
[2017-02-15 15:41] VITALS: BP 116/69; PULSE 64; O2SAT 100
== END | disposition home or self-care (01) ==
LOC: C.GI 14:18
PROVIDERS: ATTEND Internal Medicine
DX: K21.9 Gastro-esophageal reflux disease without esophagitis (principal); K29.50 Unspecified chronic gastritis without bleeding; J45.909 Unspecified asthma, uncomplicated; Z85.3 Personal history of malignant neoplasm of breast; Z90.13 Acquired absence of bilateral breasts and nipples

== ENCOUNTER 2017-04-21 22:27 | Emergency (ER) | payer OTHER ==
[~2017-04-21] VITALS: Ht 167.6 cm; Wt 80.1 kg
[~2017-04-21 22:27] MED LIST changes: -FENTANYL CITRATE INJ 50 MCG/1 ML 2 ML VIAL ONE; -LIDOCAINE HCL 2% 2 ML VIAL (20MG/ML) ONE; -PROPOFOL IV EMULSION 10 MG/ML 20 ML VIAL IV ONE; -SODIUM CHLORIDE 0.9% 500ML 500 ML IV ONE
[2017-04-21 22:37] VITALS: TEMP 37; Ht 167.6 cm; Wt 80.1 kg
[2017-04-21 23:33] LABS: BASO % 0.1 %; BASO ABS # 0.01 K/uL (0-0.2); COMPLETE YES; EOS % 3.1 %; HEMATOCRIT 36.8 % (37-47); IG% 0.3 %; LYMPH % 44.9 %; LYMPH ABS # 3.46 K/uL (1.2-3.4); MEAN CORPUSCULAR HGB CONC 33.7 g/dl (32-36); MEAN PLATELET VOLUME 10.7 fL (7.4-10.4); MONO % 5.1 %; NEUT % 46.5 %; PLATELET COUNT 222 K/uL (130-400)
[2017-04-21 23:39] LABS: MANUAL MICROSCOPIC REQUIRED? NO; REVIEW REQ? YES; URINE APPEARANCE CLOUDY (CLEAR); URINE BILIRUBIN NEG (NEG); URINE COLOR YELLOW; URINE EPITHELIAL CELL AUTO >30 /lpf (0-5); URINE NITRITE NEG (NEG); URINE PH 5.5 (4.5-7.5); URINE SPECIFIC GRAVITY 1.026 (1.000-1.030); UROBILINOGEN NEG (NEG); ZZUR CULT IF INDIC CLEAN CATCH YES
[2017-04-21 23:53] LABS: BUN/CREATININE RATIO 15.4 (10-20); CALCIUM 8.9 mg/dl (8.5-10.1); CREATININE 1.09 mg/dl (0.60-1.20)
[2017-04-22 00:03] LABS: THYROID STIMULATING HORMONE 2.64 uIu/ml (0.300-4.500)
[2017-04-22 00:06] LABS: PREG INTERNAL NEGATIVE QC NEG CLEAR BACKGROUND; PREG INTERNAL POSITIVE QC POS CONTROL LINE
[2017-04-22 01:20] VITALS: BP 129/74; PULSE 76; O2SAT 100
[2017-04-22] MEDS ORDERED: FLUCONAZOLE 50 MG TAB PO ONE (01:30)
[2017-04-22] MEDS ORDERED: SEPTRA DS HOME PACK 1 EA VIAL PO ONE (01:30)
--- NOTE | 2017-04-22 01:31 | EMERGENCY ROOM VISIT NOTE ---
History First contact with patient: 22:42 Chief Complaint: VAGINAL DISCHARGE Stated Complaint: UTERINE PAIN,RASH BURNING OUTSIDE LABIA,THINK DISC History of Present Illness The patient is a 36 year old female who presents to the Emergency Room with complaints of pelvic pain for the past 2 weeks that is steadily getting worse with white thick discharge. Patient is in a monogamous relationship. She's been trying to get with her again. She has 3 children. 3 prior pregnancies. Patient has a history of breast carcinoma who had a bilateral mastectomy. She is currently not on any cancer treatment or medications. She is currently cancer free. Patient complains of dysuria. Patient denies risk for STI's, chest pain, dyspnea, back pain, fever, chills. She is tolerating by mouth fluids and food. Review of Systems See HPI for pertinent positives & negatives. A total of 10 systems reviewed and were otherwise negative. Past Medical/Surgical History Medical Problems: (1) ACUTE CHEMICAL CONJUNCTIVITIS (2) Asthma (3) Breast cancer (4) Bronchitis (5) Gastroesophageal reflux disease (6) History of - hypertension (7) History of - pneumonia (8) Mononucleosis (9) OVARIAN CYST NEC/NOS (10) Rhabdomyolysis (11) Urinary tract infection Family History FHx: cancer Social History Smoking Status: Never Smoker Alcohol Use: none Drug Use: none Marital Status: Housing Status: lives with family Occupation Status: employed Current/Historical Medications Scheduled Omeprazole (Prilosec), 40 MG PO QAM Ranitidine (Zantac), 150 MG PO QAM Scheduled PRN Albuterol Hfa (Ventolin Hfa), 2-4 PUFFS INH Q6H PRN for SOB/Wheezing Alprazolam (Xanax), 0.5 MG PO Q8 PRN for Anxiety/Insomnia Physical Exam Vital Signs Date Time Temp Pulse Resp B/P (MAP) Pulse Ox O2 Delivery O2 Flow Rate FiO2 04/22/17 01:20 76 16 129/74 100 Room Air 04/21/17 22:37 37.0 70 18 115/78 100 Room Air Physical Exam VITALS: Vitals are noted on the nurse's note and reviewed by myself. Vital signs stable. GENERAL: Pleasant female, in no acute distress, nondiaphoretic, well-developed well-nourished. SKIN: The skin was without rashes, erythema, edema, or bruising. There is no tenting of the skin. Capillary reflex less than 2 seconds. HEAD: Normocephalic atraumatic. EARS: External auditory canals clear EYES: Pupils equal round and reactive to light and accommodation. Conjunctivae without injection, sclerae without icterus. Extraocular movements intact. NOSE: Patent, turbinates without inflammation or discharge. MOUTH: Mucous membranes moist. Pharynx without erythema or exudate. Uvula midline. Airway patent. Tongue does not deviate. NECK: Supple without nuchal rigidity. No lymphadenopathy. No thyromegaly. Cervical spine is nontender. No JVD. HEART: Regular rate and rhythm without murmurs gallops or rubs. LUNGS: Clear to auscultation bilaterally without wheezes, rales or rhonchi. No dullness to percussion. No retractions or accessory muscle use. ABDOMEN: Positive bowel sounds x 4. Normal tympanic percussion. Soft, nontender, without masses or organomegaly. Carney sign negative. No guarding or rebound tenderness. No CVA tenderness exam: Normal external female genitalia, copious white thick discharge in the vault, no CMT or adnexal Tenderness. Cultures taken and sent. Bobbin Disker present MUSCULOSKELETAL: No muscle atrophy, erythema, or edema noted. NEURO: Patient was alert and oriented to person place and time. Normal sensation to light and sharp touch. No focal neurological deficits. Medical Decision & Procedures Laboratory Results 04/21/17 23:15 Red Blood Count 4.00, Mean Corpuscular Volume 92.0, Mean Corpuscular Hemoglobin 31.0, Mean Corpuscular Hemoglobin Concent 33.7, Mean Platelet Volume 10.7, Neutrophils (%) (Auto) 46.5, Lymphocytes (%) (Auto) 44.9, Monocytes (%) (Auto) 5.1, Eosinophils (%) (Auto) 3.1, Basophils (%) (Auto) 0.1, Neutrophils # (Auto) 3.58, Lymphocytes # (Auto) 3.46, Monocytes # (Auto) 0.39, Eosinophils # (Auto) 0.24, Basophils # (Auto) 0.01 04/21/17 23:15 Test 04/21/17 23:10 04/21/17 23:15 04/22/17 01:10 Urine Color YELLOW Urine Appearance CLOUDY (CLEAR) Urine pH 5.5 (4.5-7.5) Urine Specific [place] 1.026 (1.000-1.030) Urine Protein NEG (NEG) Urine Glucose (UA) NEG (NEG) Urine Ketones NEG (NEG) Urine Occult Blood NEG (NEG) Urine Nitrite NEG (NEG) Urine Bilirubin NEG (NEG) Urine Urobilinogen NEG (NEG) Urine Leukocyte Esterase LARGE (NEG) Urine WBC (Auto) >30 /hpf (0-5) Urine RBC (Auto) 0-4 /hpf (0-4) Urine Hyaline Casts (Auto) 0 /lpf (0-5) Urine Epithelial Cells (Auto) >30 /lpf (0-5) Urine Bacteria (Auto) 2+ (NEG) Urine Pathogenic Casts /lpf (0) White Blood Count 7.70 K/uL (4.8-10.8) Red Blood Count 4.00 M/uL (4.2-5.4) Hemoglobin 12.4 g/dL (12.0-16.0) Hematocrit 36.8 % (37-47) Mean Corpuscular Volume 92.0 fL (80-100) Mean Corpuscular Hemoglobin 31.0 pg (25-34) Mean Corpuscular Hemoglobin Concent 33.7 g/dl (32-36) Platelet Count 222 K/uL (130-400) Mean Platelet Volume 10.7 fL (7.4-10.4) Neutrophils (%) (Auto) 46.5 % Lymphocytes (%) (Auto) 44.9 % Monocytes (%) (Auto) 5.1 % Eosinophils (%) (Auto) 3.1 % Basophils (%) (Auto) 0.1 % Neutrophils # (Auto) 3.58 K/uL (1.4-6.5) Lymphocytes # (Auto) 3.46 K/uL (1.2-3.4) Monocytes # (Auto) 0.39 K/uL (0.11-0.59) Eosinophils # (Auto) 0.24 K/uL (0-0.5) Basophils # (Auto) 0.01 K/uL (0-0.2) RDW Standard Deviation 48.6 fL (36.4-46.3) RDW Coefficient of Variation 14.3 % (11.5-14.5) Immature Granulocyte % (Auto) 0.3 % Immature Granulocyte # (Auto) 0.02 K/uL (0.00-0.02) Anion Gap 9.0 mmol/L (3-11) Est Creatinine Clear Calc Drug Dose 74.7 ml/min Estimated GFR () 74.6 Estimated GFR (Non- 64.3 BUN/Creatinine Ratio 15.4 (10-20) Calcium Level 8.9 mg/dl (8.5-10.1) Thyroid Stimulating Hormone (TSH) 2.640 uIu/ml (0.300-4.500) Human Chorionic Gonadotropin, Qual NEG (NEG) ED Course Prior records/ancillary studies reviewed. Triage Nursing notes reviewed. Additional history obtained from the family. The patient's history was concerning for vaginal discharge and pain Differential diagnosis: Differential diagnosis includes salpingitis, , ectopic , incomplete , septic , ruptured ovarian cyst, ovarian torsion, Mittelschmerz, endometritis, dysmenorrhea, appendicitis, PID, and others. Physical examination: As above. Vitals signs revealed stable. ER treatment provided: Patient was observed On reassessment the patient felt better. Diagnostic interpretation by me: CBC, coagulation studies, and chemistries were unremarkable. Urine test was negative. Urinalysis revealed signs of infection and sent for culture Imaging studies: Ultrasound concerning for uterine fibroid. No adnexal lesions per radiology This appears to be consistent with UTI with yeast infection. Patient was started on antibiotics. She is advised take the Diflucan at the end of the antibiotics. The urine culture was sent. She is advised to stay well-hydrated and take medications as directed. Patient did not have acute abdomen on exam. She is well-appearing. She follows with OB. She is advised follow-up in a few days for culture results and for follow-up and further evaluation and treatment or here in the ER sooner for fevers, vomiting, pain, worsening signs or symptoms or as needed. By the evaluation outlined above emergent etiologies such as ectopic , trauma, as well as others were deemed relatively unlikely. The pt informed about the findings as listed above. All questions were answered and pleased with the treatment. Return instructions were outlined and the patient was discharged in stable condition. Outpatient prescription management: Bactrim Referral: The patient was referred to [facility] for follow-up in 2 to 3 days for a recheck of her current condition. Case reviewed with my attending Medical Decision As above Medication Reconcilliation Current Medication List: was personally reviewed by me Blood Pressure Screening Patient's blood pressure: Normal blood pressure Impression Primary Impression: UTI (urinary tract infection) Additional Impression: Vaginal candidiasis Departure Information Dispostion Home / Self-Care Condition GOOD Referrals RV. Hernández MD (PCP) Patient Instructions My [facility] Additional Instructions Trimethoprim-Sulfamethoxazole(Bactrim DS): Take one pill twice daily for 5 days for your urine infection. All antibiotics can cause diarrhea. If this occurs and you feel worse or it does not resolve in 1-2 days follow up with your doctor or return to the Emergency Department as this could be signs of serious underlying problems. Any medication can cause an allergic reaction, stop the pills immediately and return to the ER for rash, hives, breathing difficulties, or swelling. Take Diflucan after you have finished the antibiotics. Ibuprofen(Motrin, Advil) may be used for fever or pain. Use 600mg every six hours as needed. Take with food. Avoid using more than 2400mg in a 24 hour period. Do not use 2400mg per day for more than three consecutive days without physician direction. Prolonged inappropriate use can lead to stomach upset or ulcers. (AND/OR) Acetaminophen(Tylenol) may be used for fever or pain. Use 1000mg every six hours as needed. Avoid using more than 3000mg in a 24 hour period. Rest and drink plenty of fluids as tolerated. Slow sips of water or sports drinks are recommended instead of large amounts all at once. Continue current medications. Return to the ER immediately for worsening or persistent abdominal/back pain, vomiting, fevers, worsening of your condition, or as needed. Follow up with your [facility] within 2-3 days for a recheck of the current condition. Problem Qualifiers Primary Impression: UTI (urinary tract infection) Urinary tract infection type: acute cystitis Hematuria presence: without hematuria Qualified Codes: N30.00 - Acute cystitis without hematuria
[2017-04-22] MEDS ORDERED: SULF800T23 PO (01:33)
--- NOTE | 2017-04-22 06:44 | DIAGNOSTIC IMAGING REPORT ---
PELVIC ULTRASOUND, TRANSABDOMINAL AND TRANSVAGINAL HISTORY: pelvic pain, hx breast CA COMPARISON: Pelvic ultrasound 12/13/2016. FINDINGS: Uterus: 10.5 x 5.6 x 6.5 cm. There is a 1.9 x 1.7 x 1.7 cm left uterine hypoechoic lesion consistent with a fibroid. Endometrial stripe: 6 mm in thickness. Right ovary: Normal in size and demonstrates normal color flow. Near complete resolution of the complex cyst which now measures 1.8 cm. Left ovary: Normal in size and demonstrates normal color flow. Miscellaneous:Trace pelvic free fluid. IMPRESSION: 1. No change in 1.9 cm uterine fibroid. 2. Near complete resolution of a complex cyst within the right ovary. 3. Trace pelvic free fluid. Electronically signed by: Mervin Person M.D. 04/22/2017 6:42 AM Dictated Date/Time: 04/22/2017 6:40 AM
[2017-04-27 00:35] LABS: CHLAMYDIA TRACH RNA*** NOT DETECTED (NOT DETECTED); GC (NEIS GONORRHOEAE)RNA** NOT DETECTED (NOT DETECTED)
== END 2017-04-22 01:40 | disposition home or self-care (01) ==
LOC: C.EDB 23:43
DX: B37.3 Candidiasis of vulva and vagina (principal); N39.0 Urinary tract infection, site not specified; J45.909 Unspecified asthma, uncomplicated; K21.9 Gastro-esophageal reflux disease without esophagitis; I10 Essential (primary) hypertension; N83.209 Unspecified ovarian cyst, unspecified side; Z87.440 Personal history of urinary (tract) infections; Z85.3 Personal history of malignant neoplasm of breast; Z79.899 Other long term (current) drug therapy; Z80.9 Family history of malignant neoplasm, unspecified

== ENCOUNTER 2017-04-27 22:21 | Emergency (ER) | payer OTHER ==
[~2017-04-27] VITALS: Ht 167.6 cm; Wt 79.5 kg
[~2017-04-27 22:21] MED LIST changes: -LEVO500T78 PO; -METH1TAB81 PO; -MULT-506 PO; +SULF800T23 PO
[2017-04-27 22:27] VITALS: TEMP 36.7; Ht 167.6 cm; Wt 79.5 kg
[2017-04-27] MEDS ORDERED: KETOROLAC TROMETHAMINE 60 MG/2 ML VIAL IM STA (22:46)
[2017-04-27] MEDS ORDERED: CEFD300C2 PO (22:48)
[2017-04-27] MEDS ORDERED: CEFTRIAXONE SOD 350MG/ML 1 GM VIAL IM ONE (23:00)
[2017-04-27] MEDS ORDERED: MoRPHine SULFATE 4 MG/ML 1 ML CARP\\VIAL IM ONE (23:00)
[2017-04-27 23:01] LABS: URINE APPEARANCE CLEAR (CLEAR); URINE BILIRUBIN NEG (NEG); URINE COLOR YELLOW; URINE NITRITE NEG (NEG); URINE PH 5.5 (4.5-7.5); URINE SPECIFIC GRAVITY 1.015 (1.000-1.030); UROBILINOGEN NEG (NEG); ZZURINE CULT IF INDIC CATH NO
[2017-04-27 23:02] LABS: MANUAL MICROSCOPIC REQUIRED? NO; REVIEW REQ? NO
[2017-04-27] MEDS ORDERED: METR-162 PO (23:19)
[2017-04-27 23:37] VITALS: BP 116/63; PULSE 78; O2SAT 99
--- NOTE | 2017-04-27 23:37 | EMERGENCY ROOM VISIT NOTE ---
History First contact with patient: 22:31 Chief Complaint: FLANK PAIN Stated Complaint: EXTREME KIDNEY PAIN History of Present Illness The patient is a 36 year old female who presents to the Emergency Room with complaints of "kidney pain" worsening over the past 2-3 days. The patient has been seen and evaluated in the emergency department recently for UTI symptoms. The patient had full pelvic exam, blood work, urine culture, and ultrasound about 4 days ago that was essentially unremarkable. The urine was with signs of infection, however the culture grew out normal skin nayeli. Vaginal swabs also revealed heavy normal nayeli. The patient is still complaining of dysuria symptoms as well as frequency. She has not had fever or chills. She does not have distinct abdominal pain, but now is complaining of pain in her kidney area. When she isolates this area she is pointing to her right SI joint. The patient does not have numbness or paresthesias. No injury or trauma. She rates her discomfort a 9/10. Review of Systems More than 10 systems were reviewed and otherwise negative with the exception of history of present illness. Past Medical/Surgical History Medical Problems: (1) ACUTE CHEMICAL CONJUNCTIVITIS (2) Asthma (3) Breast cancer (4) Bronchitis (5) Gastroesophageal reflux disease (6) History of - hypertension (7) History of - pneumonia (8) Mononucleosis (9) OVARIAN CYST NEC/NOS (10) Rhabdomyolysis (11) Urinary tract infection Family History FHx: cancer Social History Smoking Status: Never Smoker Alcohol Use: none Drug Use: none Marital Status: Housing Status: lives with family Occupation Status: employed Current/Historical Medications Scheduled Cefdinir (Omnicef), 300 MG PO Q12H Metronidazole (Flagyl), 500 MG PO BID Omeprazole (Prilosec), 40 MG PO QAM Ranitidine (Zantac), 150 MG PO QAM Scheduled PRN Albuterol Hfa (Ventolin Hfa), 2-4 PUFFS INH Q6H PRN for SOB/Wheezing Alprazolam (Xanax), 0.5 MG PO Q8 PRN for Anxiety/Insomnia Physical Exam Vital Signs Date Time Temp Pulse Resp B/P (MAP) Pulse Ox O2 Delivery O2 Flow Rate FiO2 04/27/17 22:27 36.7 78 20 114/71 99 Room Air Physical Exam VITALS: Vitals are noted on the nurse's note and reviewed by myself. Vital signs stable. GENERAL: Well-developed, well-nourished, black female, who is in no acute distress and resting comfortably. Patient is cooperative with the examination. HEART: Regular rate and rhythm without murmurs gallops or rubs. LUNGS: Clear to auscultation bilaterally without wheezes, rales or rhonchi. No retractions or accessory muscle use. ABDOMEN: Positive normal bowel sounds x 4. Soft, nontender, without masses or organomegaly. No guarding or rebound tenderness. No CVA tenderness. MUSCULOSKELETAL: No muscle atrophy, erythema, or edema noted. No saddle paresthesias. Positive right SI joint tenderness. Negative straight leg raise bilateral. NEURO: Patient was alert and oriented to person place and time. CN II through XII grossly intact. Medical Decision & Procedures Laboratory Results Test 04/27/17 22:50 Urine Color YELLOW Urine Appearance CLEAR (CLEAR) Urine pH 5.5 (4.5-7.5) Urine Specific [place] 1.015 (1.000-1.030) Urine Protein NEG (NEG) Urine Glucose (UA) NEG (NEG) Urine Ketones NEG (NEG) Urine Occult Blood NEG (NEG) Urine Nitrite NEG (NEG) Urine Bilirubin NEG (NEG) Urine Urobilinogen NEG (NEG) Urine Leukocyte Esterase NEG (NEG) Medications Administered Medications (Trade) Dose Ordered Sig/Claudia Route Start Time Stop Time Status Last Admin Dose Admin Ceftriaxone Sodium (Rocephin Im) 1,000 mg NOW ONCE IM 04/27/17 23:00 04/27/17 23:01 DC 04/27/17 22:59 1,000 MG Ketorolac Tromethamine (Toradol Inj) 60 mg NOW STAT IM 04/27/17 22:46 04/27/17 22:48 DC 04/27/17 23:00 60 MG Morphine Sulfate (MoRPHine SULFATE INJ) 4 mg NOW ONCE IM 04/27/17 23:00 04/27/17 23:01 DC 04/27/17 23:00 4 MG ED Course Physical exam and history were performed. Nursing notes, EMR, and Medication List were personally reviewed. Patient appears to have a recent diagnosis of UTI, for which she is on Bactrim for. I did review her chart, and we were not able to get a sensitivity on her urine the last 2 or 3 times that she has been here for this. I did elect to perform a cath urine sample today in attempt to obtain a more accurate culture. The patient's discomfort certainly could be musculoskeletal, as she is complaining of SI joint pain. I do not suspect a pyelonephritis as she is afebrile and does not have distinct CVA tenderness. I will provide the patient IM Toradol and IM morphine here for her symptoms. I also will give her a dose of IM Rocephin and have her stop her Bactrim. I will start the patient on a course of Omnicef and Flagyl, as this should cover any urine infection symptoms or bacterial vaginosis. The patient really needs to follow with her primary care physician for appropriate management. She is to call tomorrow after the to make an appointment for Monday. She was otherwise given instructions to return with high fever or significant pain. The patient voiced understanding and was discharged home under the care of a male english division chair. The chart was completed utilizing [employer] Speech Voice Recognition Software. Grammatical errors, random word insertions, pronoun errors, and incomplete sentences are an occasional consequence of this system due to software limitations, ambient noise, and hardware issues. Any formal questions or concerns about the content, text, or information contained within the body of this dictation should be directly addressed to the provider for clarification. . Medical Decision Differential diagnosis: Etiologies such as UTI, pyelonephritis, vaginitis, bacterial vaginosis, musculoskeletal, disc herniation, fracture, aortic disease, metastatic disease, cord compression, discitis, infection, renal colic, gastrointestinal, acute exacerbation of chronic back pain, sciatica, cauda equina, as well as others were entertained. Impression Primary Impression: Urinary tract infection Additional Impression: Low back pain Departure Information Dispostion Home / Self-Care Condition GOOD Prescriptions Metronidazole (FLAGYL) 500 Mg Tab 500 MG PO BID for 7 Days, #14 TAB Prov: Arthur Harris PA-C 04/27/17 Cefdinir (OMNICEF) 300 Mg Cap 300 MG PO Q12H for 9 Days, #18 CAP Prov: Arthur Harris PA-C 04/27/17 Referrals RV. Hernández MD (PCP) Forms HOME CARE DOCUMENTATION FORM, IMPORTANT VISIT INFORMATION Patient Instructions My [facility] Additional Instructions You were seen and evaluated today on an emergency basis only. This is not a substitute for, or an effort to provide, complete comprehensive medical care. It is not possible to recognize and treat all injuries or illnesses in a single emergency department visit. For this reason it is recommended that you followup with your primary care physician on Monday for ongoing care and evaluation. Call tomorrow to make your appointment. For baseline pain relief you may alternate ibuprofen and acetaminophen every 4 hours for pain control. Take 600 mg ibuprofen (Advil) and then 4 hours later take 1000 mg acetaminophen (Tylenol). Do not take more than 3000 mg acetaminophen in a single day. Take Omnicef 300 mg twice daily for the next 9 days. Start this medication tomorrow evening. Take Flagyl 500 mg twice daily for the next 7 days. You are welcome to return to the emergency department anytime with new, worsening, or concerning symptoms. Problem Qualifiers
== END 2017-04-27 23:38 | disposition home or self-care (01) ==
LOC: C.EDB 22:22
DX: N39.0 Urinary tract infection, site not specified (principal); M54.5 Low back pain; J45.909 Unspecified asthma, uncomplicated; D49.3 Neoplasm of unspecified behavior of breast; K21.9 Gastro-esophageal reflux disease without esophagitis; I10 Essential (primary) hypertension; M62.82 Rhabdomyolysis

== ENCOUNTER 2017-06-10 21:56 | Emergency (ER) | payer OTHER ==
[~2017-06-10] VITALS: Ht 167.6 cm; Wt 82.9 kg
[~2017-06-10 21:56] MED LIST changes: -SULF800T23 PO
[2017-06-10 22:11] VITALS: TEMP 36.7; Ht 167.6 cm; Wt 82.9 kg
[2017-06-10 22:50] LABS: BASO % 0.2 %; BASO ABS # 0.02 K/uL (0-0.2); EOS % 1.5 %; EOS ABS # 0.13 K/uL (0-0.5); HEMATOCRIT 36.6 % (37-47); HEMOGLOBIN 12.3 g/dL (12.0-16.0); IG# 0.02 K/uL (0.00-0.02); LYMPH % 31.6 %; LYMPH ABS # 2.75 K/uL (1.2-3.4); MEAN CELL VOLUME 91.3 fL (80-100); MEAN CORPUSCULAR HEMOGLOBIN 30.7 pg (25-34); MEAN CORPUSCULAR HGB CONC 33.6 g/dl (32-36); MEAN PLATELET VOLUME 10.9 fL (7.4-10.4); MONO % 6.4 %; MONO ABS # 0.56 K/uL (0.11-0.59); NEUT % 60.1 %; NEUT ABS # 5.21 K/uL (1.4-6.5); PLATELET COUNT 216 K/uL (130-400); RED CELL DISTRIBUTION WIDTH CV 14.2 % (11.5-14.5); WHITE BLOOD COUNT 8.69 K/uL (4.8-10.8)
--- NOTE | 2017-06-10 23:08 | DIAGNOSTIC IMAGING REPORT ---
RIGHT AXILLARY ULTRASOUND CLINICAL HISTORY: Right axillary mass. COMPARISON STUDY: No previous studies for comparison. FINDINGS: No pathologic masses adenopathy or fluid collections are visualized ultrasonographically. Chondral follow-up is advocated IMPRESSION: No axillary masses or adenopathy were visualized ultrasonographically. Clinical follow-up is advocated. Electronically signed by: Melvin Ahmadi M.D. 06/10/2017 11:07 PM Dictated Date/Time: 06/10/2017 11:06 PM
--- NOTE | 2017-06-10 23:08 | DIAGNOSTIC IMAGING REPORT ---
LEFT AXILLARY ULTRASOUND CLINICAL HISTORY: Left axillary mass COMPARISON STUDY: No previous studies for comparison. FINDINGS: No pathologic masses or fluid collections are visualized in the left axilla. Clinical follow-up is advocated. IMPRESSION: No axillary masses or adenopathy were visualized ultrasonographically. Clinical follow-up is advocated. Electronically signed by: Melvin Ahmadi M.D. 06/10/2017 11:06 PM Dictated Date/Time: 06/10/2017 11:05 PM
[2017-06-10 23:12] LABS: CALCIUM 8.3 mg/dl (8.5-10.1); CREATININE 1.03 mg/dl (0.60-1.20); POTASSIUM 4.1 mmol/L (3.5-5.1)
[2017-06-10] MEDS ORDERED: KETOROLAC TROMETHAMINE 30 MG/ML VIAL IV STA (23:42)
[2017-06-10] MEDS ORDERED: KETOROLAC TROMETHAMINE 30 MG/ML VIAL ONE (23:43)
[2017-06-11 00:08] VITALS: BP 121/65; PULSE 82; O2SAT 100
--- NOTE | 2017-06-11 05:44 | EMERGENCY ROOM VISIT NOTE ---
History First contact with patient: 22:16 Chief Complaint: OTHER COMPLAINT Stated Complaint: CHEST PAIN, LUMPY FEELING IN [place] History of Present Illness The patient is a 36 year old female who presents to the Emergency Room with complaints of bilateral breast pain for the past few weeks that is steadily getting worse who has a history of breast cancer and mastectomy with breast implants from August 2015. She states she's been cancer free for the last year and a half. She follows with Dr. Brown. No recent mammogram or breast ultrasound. Patient states majority of her pain is in the axilla area. Patient denies fevers, night sweats, chest pain, dyspnea, redness, discoloration. No trauma to the area. She did not notify her oncologist. Review of Systems See HPI for pertinent positives & negatives. A total of 10 systems reviewed and were otherwise negative. Past Medical/Surgical History Medical Problems: (1) ACUTE CHEMICAL CONJUNCTIVITIS (2) Asthma (3) Breast cancer (4) Bronchitis (5) Gastroesophageal reflux disease (6) History of - hypertension (7) History of - pneumonia (8) Mononucleosis (9) OVARIAN CYST NEC/NOS (10) Rhabdomyolysis (11) Urinary tract infection Mastectomy bilateral Family History FHx: cancer Social History Smoking Status: Never Smoker Alcohol Use: none Drug Use: none Marital Status: Housing Status: lives with family Occupation Status: employed Current/Historical Medications Scheduled Omeprazole (Prilosec), 40 MG PO QAM Ranitidine (Zantac), 150 MG PO QAM Scheduled PRN Albuterol Hfa (Ventolin Hfa), 2-4 PUFFS INH Q6H PRN for SOB/Wheezing Alprazolam (Xanax), 0.5 MG PO Q8 PRN for Anxiety/Insomnia Physical Exam Vital Signs Date Time Temp Pulse Resp B/P (MAP) Pulse Ox O2 Delivery O2 Flow Rate FiO2 06/11/17 00:08 82 18 121/65 100 06/10/17 23:23 82 18 121/65 100 Room Air 06/10/17 22:11 36.7 90 20 107/61 99 Room Air Physical Exam VITALS: Vitals are noted on the nurse's note and reviewed by myself. Vital signs stable. GENERAL: Anxious appearing female, in no acute distress, nondiaphoretic, well- developed well-nourished. SKIN: Capillary reflex less than 2 seconds. HEENT: Normocephalic. PERRLA. EOMI. Nares patent. Mucous membranes moist. Neck is supple without nuchal rigidity. HEART: Regular rate and rhythm without murmurs gallops or rubs. LUNGS: Clear to auscultation bilaterally without wheezes, rales or rhonchi. No retractions or accessory muscle use. Breast exam: Bilateral breasts with no masses appreciated. Surgical scars intact. No signs of drainage. Site Safety Manager present. ABDOMEN: Positive bowel sounds x 4. Normal tympanic percussion. Soft, nontender, without masses or organomegaly. Carney sign negative. No guarding or rebound tenderness. MUSCULOSKELETAL: No gross musculoskeletal defects. NEURO: Patient was alert and oriented to person place and time. Normal sensation to light and sharp touch. No focal neurological deficits. Medical Decision & Procedures Laboratory Results 06/10/17 22:30 Red Blood Count 4.01, Mean Corpuscular Volume 91.3, Mean Corpuscular Hemoglobin 30.7, Mean Corpuscular Hemoglobin Concent 33.6, Mean Platelet Volume 10.9, Neutrophils (%) (Auto) 60.1, Lymphocytes (%) (Auto) 31.6, Monocytes (%) (Auto) 6.4, Eosinophils (%) (Auto) 1.5, Basophils (%) (Auto) 0.2, Neutrophils # (Auto) 5.21, Lymphocytes # (Auto) 2.75, Monocytes # (Auto) 0.56, Eosinophils # (Auto) 0.13, Basophils # (Auto) 0.02 06/10/17 22:30 Test 06/10/17 22:30 White Blood Count 8.69 K/uL (4.8-10.8) Red Blood Count 4.01 M/uL (4.2-5.4) Hemoglobin 12.3 g/dL (12.0-16.0) Hematocrit 36.6 % (37-47) Mean Corpuscular Volume 91.3 fL (80-100) Mean Corpuscular Hemoglobin 30.7 pg (25-34) Mean Corpuscular Hemoglobin Concent 33.6 g/dl (32-36) Platelet Count 216 K/uL (130-400) Mean Platelet Volume 10.9 fL (7.4-10.4) Neutrophils (%) (Auto) 60.1 % Lymphocytes (%) (Auto) 31.6 % Monocytes (%) (Auto) 6.4 % Eosinophils (%) (Auto) 1.5 % Basophils (%) (Auto) 0.2 % Neutrophils # (Auto) 5.21 K/uL (1.4-6.5) Lymphocytes # (Auto) 2.75 K/uL (1.2-3.4) Monocytes # (Auto) 0.56 K/uL (0.11-0.59) Eosinophils # (Auto) 0.13 K/uL (0-0.5) Basophils # (Auto) 0.02 K/uL (0-0.2) RDW Standard Deviation 48.0 fL (36.4-46.3) RDW Coefficient of Variation 14.2 % (11.5-14.5) Immature Granulocyte % (Auto) 0.2 % Immature Granulocyte # (Auto) 0.02 K/uL (0.00-0.02) Anion Gap 5.0 mmol/L (3-11) Est Creatinine Clear Calc Drug Dose 80.3 ml/min Estimated GFR () 79.9 Estimated GFR (Non- 68.9 BUN/Creatinine Ratio 13.7 (10-20) Calcium Level 8.3 mg/dl (8.5-10.1) Lactate Dehydrogenase 184 U/L (84-246) Medications Administered Medications (Trade) Dose Ordered Sig/Claudia Route Start Time Stop Time Status Last Admin Dose Admin Ketorolac Tromethamine (Toradol Inj) 30 mg NOW STAT IV 06/10/17 23:42 06/10/17 23:50 DC 06/10/17 23:46 30 MG ED Course Prior records reviewed and summarized as above. Triage Nursing notes reviewed. Additional history obtained from family. The patient's history was concerning for breast pain. Differential diagnosis: Etiologies such as cellulitis, abscess, reoccurrence of breast cancer, fibrocystic breast disease, as well as others were entertained.. Physical examination: Patient is alert and well-appearing ER treatment provided: Toradol On reassessment the patient felt better. Diagnostics interpreted by me: The labs revealed no worrisome leukocytosis. Normal LDH. Imaging studies: CLINICAL HISTORY: Left axillary mass COMPARISON STUDY: No previous studies for comparison. FINDINGS: No pathologic masses or fluid collections are visualized in the left axilla. Clinical follow-up is advocated. IMPRESSION: No axillary masses or adenopathy were visualized ultrasonographically. Clinical follow-up is advocated. Electronically signed by: Melvin Ahmadi M.D. RIGHT AXILLARY ULTRASOUND CLINICAL HISTORY: Right axillary mass. COMPARISON STUDY: No previous studies for comparison. FINDINGS: No pathologic masses adenopathy or fluid collections are visualized ultrasonographically. Chondral follow-up is advocated IMPRESSION: No axillary masses or adenopathy were visualized ultrasonographically. Clinical follow-up is advocated. Electronically signed by: Melvin Ahmadi M.D. This appears to be breast pain with unclear etiology. Patient was advised to see the breast clinic this week for an updated mammogram or and/or dedicated breast ultrasound. She verbalized understanding this. Patient no signs of infection. She is well-appearing. Symptoms have been ongoing for a few weeks now. She is advised to follow-up as directed with her oncologist. She is advised return to the ER immediately for fevers, chest pain, worsening signs or symptoms or as needed. By the evaluation outlined above emergent etiologies such as abscess, mass, as well as others were deemed relatively unlikely. The pt informed about the findings as listed above. All questions were answered and pleased with the treatment. Return instructions were outlined and the patient was discharged in stable condition. Case reviewed with my attending Referral: The patient was referred back to oncology and/or primary care physician for follow-up in 2 to 3 days for a recheck of the current condition. Medical Decision As above Medication Reconcilliation Current Medication List: was personally reviewed by me Blood Pressure Screening Patient's blood pressure: Normal blood pressure Impression Primary Impression: Breast pain in female Departure Information Dispostion Home / Self-Care Condition GOOD Forms WORK / SCHOOL INSTRUCTIONS, HOME CARE DOCUMENTATION FORM, IMPORTANT VISIT INFORMATION Patient Instructions My [facility] Additional Instructions You need to update your mammogram and/or breast ultrasound at the breast clinic. Call Monday morning to make this appointment. Recommend that you do monthly breast exams. Ibuprofen(Motrin, Advil) may be used for fever or pain. Use 600mg every six hours as needed. Take with food. Avoid using more than 2400mg in a 24 hour period. Do not use 2400mg per day for more than three consecutive days without physician direction. Prolonged inappropriate use can lead to stomach upset or ulcers. (AND/OR) Acetaminophen(Tylenol) may be used for fever or pain. Use 1000mg every six hours as needed. Avoid using more than 3000mg in a 24 hour period. Rest and drink plenty of fluids as tolerated. Continue current medications. Avoid strenuous activities and anything that worsens your pain. Resume normal activities once your symptoms resolve. Return to the ER immediately for worsening or persistent breast pain, abdominal pain, vomiting, fevers, chest pains, difficulty breathing, worsening of your condition, or as needed. Follow up with your primary physician and oncologist in 2-3 days for a recheck of your current condition.
== END 2017-06-11 00:09 | disposition home or self-care (01) ==
LOC: C.EDB 21:57 → C.EDA 06-11 00:09
DX: N64.4 Mastodynia (principal); Z85.3 Personal history of malignant neoplasm of breast; Z90.13 Acquired absence of bilateral breasts and nipples; Z98.82 Breast implant status; J45.909 Unspecified asthma, uncomplicated; K21.9 Gastro-esophageal reflux disease without esophagitis; Z86.79 Personal history of other diseases of the circulatory system; Z80.9 Family history of malignant neoplasm, unspecified

== ENCOUNTER → 2017-08-28 | Outpatient (CLI) | payer OTHER ==
[~2017-08-28] MED LIST changes: +RANI150T85 PO; -ZNTT/150 PO
== END | disposition home or self-care (01) ==
LOC: C.LABSPEC 13:39
PROVIDERS: ATTEND Physician Assistant
DX: N89.8 Other specified noninflammatory disorders of vagina (principal)

== ENCOUNTER 2017-10-06 23:56 | Emergency (ER) | payer OTHER ==
[~2017-10-06] VITALS: Ht 167.6 cm; Wt 86.6 kg
[2017-10-07 00:04] VITALS: TEMP 36.9; Ht 167.6 cm; Wt 86.6 kg
[2017-10-07 00:28] VITALS: O2SAT 100
[2017-10-07 00:57] LABS: BASO % 0.3 %; BASO ABS # 0.02 K/uL (0-0.2); EOS % 2.8 %; EOS ABS # 0.18 K/uL (0-0.5); HEMATOCRIT 35.9 % (37-47); HEMOGLOBIN 11.9 g/dL (12.0-16.0); LYMPH % 44.3 %; LYMPH ABS # 2.89 K/uL (1.2-3.4); MEAN CELL VOLUME 90.9 fL (80-100); MEAN CORPUSCULAR HEMOGLOBIN 30.1 pg (25-34); MEAN CORPUSCULAR HGB CONC 33.1 g/dl (32-36); MEAN PLATELET VOLUME 10.6 fL (7.4-10.4); MONO % 5.8 %; MONO ABS # 0.38 K/uL (0.11-0.59); NEUT % 46.8 %; NEUT ABS # 3.06 K/uL (1.4-6.5); PLATELET COUNT 233 K/uL (130-400); RED CELL DISTRIBUTION WIDTH CV 14.2 % (11.5-14.5); RED CELL DISTRIBUTION WIDTH SD 47.2 fL (36.4-46.3); WHITE BLOOD COUNT 6.53 K/uL (4.8-10.8)
[2017-10-07 01:21] LABS: ALBUMIN 3.5 gm/dl (3.4-5.0); ALT/SGPT 28 U/L (12-78); AST/SGOT 14 U/L (15-37); BLOOD UREA NITROGEN 12 mg/dl (7-18); CALCIUM 8.7 mg/dl (8.5-10.1); CARBON DIOXIDE 29 mmol/L (21-32); CREATININE 1.19 mg/dl (0.60-1.20); GLUCOSE 91 mg/dl (70-99); SODIUM 138 mmol/L (136-145)
[2017-10-07 01:32] LABS: ALKALINE PHOSPHATASE 83 U/L (45-117); TOTAL PROTEIN 7.8 gm/dl (6.4-8.2)
[2017-10-07 01:44] VITALS: BP 119/73; PULSE 73; O2SAT 100
--- NOTE | 2017-10-07 02:10 | EMERGENCY ROOM VISIT NOTE ---
History First contact with patient: 00:06 Chief Complaint: SWELLING TO EXTREMITY Stated Complaint: leg swelling,lethargic,leg paiin History of Present Illness The patient is a 37 year old female who presents to the Emergency Room with complaints of leg swelling, fatigue and leg achiness for the past few days. Patient states she has had rhabdomyolysis before and is concerned she is back in this. Patient has been exercising more. She can try to get back in shape. Patient denies chest pain, dyspnea, fever, chills, nausea, vomiting, diarrhea, abdominal pain, peripheral edema. Patient has a history of breast cancer. No history of DVT or PE. She does not smoke. No control. No recent travel. Review of Systems An 10 system review of systems was completed with positives and pertinent negatives listed in the HPI. Past Medical/Surgical History Medical Problems: (1) ACUTE CHEMICAL CONJUNCTIVITIS (2) Asthma (3) Breast cancer (4) Bronchitis (5) Gastroesophageal reflux disease (6) History of - hypertension (7) History of - pneumonia (8) Mononucleosis (9) OVARIAN CYST NEC/NOS (10) Rhabdomyolysis (11) Urinary tract infection Family History FHx: cancer Social History Smoking Status: Never Smoker Smokeless Tobacco Use: No Alcohol Use: none Drug Use: none Marital Status: Housing Status: lives with family Occupation Status: employed Current/Historical Medications Scheduled Omeprazole (Prilosec), 40 MG PO QAM Ranitidine (Zantac), 150 MG PO QAM Scheduled PRN Albuterol Hfa (Ventolin Hfa), 2-4 PUFFS INH Q6H PRN for SOB/Wheezing Physical Exam Vital Signs Date Time Temp Pulse Resp B/P (MAP) Pulse Ox O2 Delivery O2 Flow Rate FiO2 10/07/17 01:44 73 18 119/73 100 Room Air 10/07/17 00:48 80 18 120/71 100 Room Air 10/07/17 00:47 80 18 116/66 66 112/74 80 120/71 10/07/17 00:36 76 10/07/17 00:28 100 Room Air 10/07/17 00:27 100 Room Air 10/07/17 00:04 36.9 81 17 107/71 100 Room Air Physical Exam VITALS: Vitals are noted on the nurse's note and reviewed by myself. Vital signs stable. GENERAL: Pleasant female, in no acute distress, nondiaphoretic, well-developed well-nourished. SKIN: The skin was without rashes, erythema, edema, or bruising. There is no tenting of the skin. Capillary reflex less than 2 seconds. HEAD: Normocephalic atraumatic. EARS: External auditory canals clear EYES: Pupils equal round and reactive to light and accommodation. Conjunctivae without injection, sclerae without icterus. Extraocular movements intact. NOSE: Patent, turbinates without inflammation or discharge. MOUTH: Mucous membranes moist. Pharynx without erythema or exudate. Uvula midline. Airway patent. Tongue does not deviate. NECK: Supple without nuchal rigidity. No lymphadenopathy. No thyromegaly. Cervical spine is nontender. No JVD. HEART: Regular rate and rhythm without murmurs gallops or rubs. LUNGS: Clear to auscultation bilaterally without wheezes, rales or rhonchi. No retractions or accessory muscle use. ABDOMEN: Positive bowel sounds x 4. Normal tympanic percussion. Soft, nontender, without masses or organomegaly. Carney sign negative. No guarding or rebound tenderness. No CVA tenderness MUSCULOSKELETAL: No muscle atrophy, erythema, or edema noted. NEURO: Patient was alert and oriented to person place and time. Normal sensation to light and sharp touch. No focal neurological deficits. Medical Decision & Procedures Laboratory Results 10/07/17 00:24 Red Blood Count 3.95, Mean Corpuscular Volume 90.9, Mean Corpuscular Hemoglobin 30.1, Mean Corpuscular Hemoglobin Concent 33.1, Mean Platelet Volume 10.6, Neutrophils (%) (Auto) 46.8, Lymphocytes (%) (Auto) 44.3, Monocytes (%) (Auto) 5.8, Eosinophils (%) (Auto) 2.8, Basophils (%) (Auto) 0.3, Neutrophils # (Auto) 3.06, Lymphocytes # (Auto) 2.89, Monocytes # (Auto) 0.38, Eosinophils # (Auto) 0.18, Basophils # (Auto) 0.02 10/07/17 00:24 Test 10/07/17 00:24 White Blood Count 6.53 K/uL (4.8-10.8) Red Blood Count 3.95 M/uL (4.2-5.4) Hemoglobin 11.9 g/dL (12.0-16.0) Hematocrit 35.9 % (37-47) Mean Corpuscular Volume 90.9 fL (80-100) Mean Corpuscular Hemoglobin 30.1 pg (25-34) Mean Corpuscular Hemoglobin Concent 33.1 g/dl (32-36) Platelet Count 233 K/uL (130-400) Mean Platelet Volume 10.6 fL (7.4-10.4) Neutrophils (%) (Auto) 46.8 % Lymphocytes (%) (Auto) 44.3 % Monocytes (%) (Auto) 5.8 % Eosinophils (%) (Auto) 2.8 % Basophils (%) (Auto) 0.3 % Neutrophils # (Auto) 3.06 K/uL (1.4-6.5) Lymphocytes # (Auto) 2.89 K/uL (1.2-3.4) Monocytes # (Auto) 0.38 K/uL (0.11-0.59) Eosinophils # (Auto) 0.18 K/uL (0-0.5) Basophils # (Auto) 0.02 K/uL (0-0.2) RDW Standard Deviation 47.2 fL (36.4-46.3) RDW Coefficient of Variation 14.2 % (11.5-14.5) Immature Granulocyte % (Auto) 0.0 % Immature Granulocyte # (Auto) 0.00 K/uL (0.00-0.02) Anion Gap 2.0 mmol/L (3-11) Est Creatinine Clear Calc Drug Dose 70.3 ml/min Estimated GFR () 66.6 Estimated GFR (Non- 57.5 BUN/Creatinine Ratio 10.1 (10-20) Calcium Level 8.7 mg/dl (8.5-10.1) Magnesium Level 2.0 mg/dl (1.8-2.4) Total Bilirubin 0.3 mg/dl (0.2-1) Direct Bilirubin < 0.1 mg/dl (0-0.2) Aspartate Amino Transf (AST/SGOT) 14 U/L (15-37) Alanine Aminotransferase (ALT/SGPT) 28 U/L (12-78) Alkaline Phosphatase 83 U/L (45-117) Total Creatine Kinase 340 U/L (26-192) Total Protein 7.8 gm/dl (6.4-8.2) Albumin 3.5 gm/dl (3.4-5.0) Thyroid Stimulating Hormone (TSH) 2.140 uIu/ml (0.300-4.500) Human Chorionic Gonadotropin, Qual NEG (NEG) ED Course Prior records/ancillary studies reviewed and summarized above. Nursing notes reviewed. Additional history obtained from family. The patient's history was concerning for fatigue. Differential diagnosis: Etiologies such as rhabdomyolysis, DVT, metabolic, infection, hypo/hyperglycemia , electrolyte abnormalities, cardiac sources, intracerebral event, toxicologic, neurologic, as well as others were entertained. Physical examination: As above. ER treatment provided: IV Lock po fluids On reassessment the patient felt better. Diagnostics interpretation by me: The labs revealed mild anemia. Euthyroid. Negative ECG. Mildly elevated CPK Imaging studies: Chest x-ray with no acute consolidation, pneumothorax, overt signs of heart failure or free air per my interpretation. Preliminary Findings Only See Final Report For Complete Findings US VENOUS BILATERAL LOWER EXTREMITIES: No evidence of DVT in the visualized veins of the bilateral lower extremities. Increased phasicity of the waveforms in the veins could indicate right-sided heart failure or tricuspid regurgitation. Radiologist: Francheska Burton MD Exam and history seem consistent with fatigue with achiness and minimal leg swelling most likely from heat and resuming exercise routine. Patient had no clinical signs or symptoms of heart failure. She is advised to get an outpatient echo. No audible murmur on exam. Patient was neurovascularly and neurologically intact. She is well-appearing. She is tolerating fluids. Patient was advised to do more core stretching activities at yoga and/or Pilates versus heavy lifting. She is also informed to do low impact cardiovascular activity like swimming, hiking and biking. By the evaluation outlined above emergent etiologies such as infection, electrolyte abnormalities, cardiac sources, intracerebral event, toxologic, neurologic, abnormalities blood glucose, metabolic, as well as others were deemed relatively unlikely. The pt informed about the findings as listed above. All questions were answered and pleased with the treatment. Return instructions were outlined and the patient was discharged in stable condition. Referral: The patient was referred back to primary care physician for follow-up in 2 to 3 days for a recheck of the current condition. Case reviewed with my attending The chart was completed utilizing [employer] voice recognition software. Grammatical errors, random word insertions, pronoun errors, and incomplete sentences are an occassional consequence of this system due to software limitations, ambient noise, and hardware issues. Any formal questions or concerns about the content, text, or information contained within the body of this dictation should be directly addressed to the physician culture media laboratory assistant for clarification. Medical Decision As above Medication Reconcilliation Current Medication List: was personally reviewed by me Blood Pressure Screening Patient's blood pressure: Normal blood pressure Impression Primary Impression: Leg swelling Additional Impression: Fatigue Departure Information Dispostion Home / Self-Care Condition GOOD Referrals No Doctor, Assigned (PCP) Patient Instructions My [facility] Additional Instructions Recommend outpatient echo for further evaluation workup. Family care doctor can order this. Rest and drink plenty of fluids as tolerated. Recommend core strengthening activities like yoga and/or Pilates. Continue current medications. Avoid strenuous activities and anything that worsens your pain. Resume normal activities once your symptoms resolve. Return to the ER immediately for worsening or persistent leg problems, abdominal pain, vomiting, fevers, chest pains, difficulty breathing, worsening of your condition, or as needed. Follow up with your primary physician in 2-3 days for a recheck of your current condition. Problem Qualifiers
--- NOTE | 2017-10-07 06:16 | DIAGNOSTIC IMAGING REPORT ---
VENOUS DOPPLER LWR EXT BILA CLINICAL HISTORY: 37 years-old Female presenting with leg swelling. TECHNIQUE: Real-time grayscale and color and spectral Doppler ultrasound imaging of the veins of the bilateral lower extremities was performed. Compression and augmentation were also utilized. COMPARISON: None. FINDINGS: Right: Common femoral vein: Patent. Greater saphenous vein: Patent. Deep femoral vein: Patent. Femoral vein: Patent. Popliteal vein: Patent. Calf veins: Patent. Left: Common femoral vein: Patent. Greater saphenous vein: Patent. Deep femoral vein: Patent. Femoral vein: Patent. Popliteal vein: Patent. Calf veins: Patent. Other: None. IMPRESSION: No evidence of deep venous thrombosis. Electronically signed by: Fabrice Loza M.D. 10/07/2017 6:14 AM Dictated Date/Time: 10/07/2017 6:13 AM
--- NOTE | 2017-10-07 06:47 | DIAGNOSTIC IMAGING REPORT ---
CHEST ONE VIEW PORTABLE CLINICAL HISTORY: 37 years-old Female presenting with fatigue, leg swelling. TECHNIQUE: Portable upright AP view of the chest was obtained. COMPARISON: 02/04/2017. FINDINGS: Cardiomediastinal silhouette normal. No focal opacity. No large effusion or pneumothorax. Osseous structures normal. Upper abdomen normal. IMPRESSION: 1. No acute cardiopulmonary disease. Electronically signed by: Fabrice Loza M.D. 10/07/2017 6:45 AM Dictated Date/Time: 10/07/2017 6:44 AM
== END 2017-10-07 02:22 | disposition home or self-care (01) ==
LOC: C.EDB 23:59
DX: R60.0 Localized edema (principal); R53.83 Other fatigue; J45.909 Unspecified asthma, uncomplicated; Z85.3 Personal history of malignant neoplasm of breast

== ENCOUNTER → 2017-12-29 | Outpatient (CLI) | payer OTHER ==
[~2017-12-29] MED LIST changes: -ALPR-411 PO; +CHOLCAP5 PO; +OXYC-737 PO; -RANI150T85 PO; +RANI300T PO; -VNTHFA/IN INH
== END | disposition home or self-care (01) ==
LOC: C.LABBC 10:55
PROVIDERS: ATTEND Family Medicine Adult Medicine
DX: M25.562 Pain in left knee (principal)

== ENCOUNTER 2021-06-17 12:15 | Observation (INO) ==
[2021-06-17] MEDS ORDERED: ONDANSETRON INJ 2 MG/ML 2 ML VIAL IV STA (12:40)
[2021-06-17] MEDS ORDERED: ACETAMINOPHEN 1,000 MG/100 ML VIAL IV STA (12:40)
[2021-06-17] MEDS ORDERED: SODIUM CHLORIDE 0.9% 1000ML 1,000 ML IV ONE (12:40)
[2021-06-17] MEDS ORDERED: MoRPHine SULFATE 10 MG/ML CARP/VIAL IV STA (12:40)
[2021-06-17 13:13] LABS: Basophils # (auto) 0.02 K/uL (0-0.2); Basophils % (auto) 0.2 %; Eosinophils # (auto) 0.18 K/uL (0-0.5); Eosinophils % (auto) 2.1 %; Hematocrit (blood only) 38.3 % (37-47); Hemoglobin 12.5 g/dL (12.0-16.0); Immature Granulocytes # (auto) 0.02 K/uL (0.00-0.02); Immature Granulocytes % (auto) 0.2 %; Lymphocytes # (auto) 3.23 K/uL (1.2-3.4); Lymphocytes % (auto) 37.4 %; Mean Corpuscular Hemoglobin 29.9 pg (25-34); Mean Corpuscular Hgb Conc 32.6 g/dL (32-36); Mean Corpuscular Volume 91.6 fL (80-100); Mean Platelet Volume 10.2 fL (7.4-10.4); Monocytes # (auto) 0.44 K/uL (0.11-0.59); Monocytes % (auto) 5.1 %; Neutrophils # (auto) 4.74 K/uL (1.4-6.5); Platelet Count 304 K/uL (130-400); RDW Coefficient of Variation 14.5 % (11.5-14.5); RDW Standard Deviation 48.4 fL (36.4-46.3); Red Blood Count 4.18 M/uL (4.2-5.4); White Blood Count 8.63 K/uL (4.8-10.8)
--- NOTE | 2021-06-17 13:14 | Emergency Department Note ---
Impression & Plan Incarcerated umbilical hernia, Omental infarction, Abdominal pain ED Provider Note NAME: JEFFRY ARMSTRONG AGE: 40 SEX: F ARRIVES VIA: Walk-In INFORMANT: Patient. ED PROVIDER(S): Albaro Barber MD CHIEF COMPLAINT: Abdominal pain PLAN: Disposition: Admit MEDICAL DECISION MAKING: The patient is a pleasant 40-year-old woman with a past medical history of acid reflux and breast CA who presents to the emergency department from the surgery clinic where she presented for evaluation for her abdominal pain related to an omental infarct that was identified on 06/[address] when she was seen in the emergency department. A small fat filled hernia was also present. The patient reports she has not moved her bowels since her last ED visit. She reports that her pain was so severe she barely made it to the appointment. She reports they referred to the emergency department given the severity of her pain where she is unable to be touching her abdomen without excruciating pain and severe nausea. She denies any fevers, chills, cough, congestion, urinary symptoms. On arrival the patient is uncomfortable and significant pain distress, afebrile stable vital signs. Her abdomen is distended and diffusely tender with voluntary involuntary guarding and rebound. WBC, H/H and platelets within normal limits. Chemistry without metabolic acidosis. Electrolytes and LFTs are unremarkable. Troponin negative/undetectable. Lipase is not elevated. hCG was negative. UA without convincing evidence of infection as there is no bacteria and epithelial cells ar e present. COVID-19, RNA, NAAT test was negative. KUB demonstrates moderate fecal retention with nonobstructive bowel gas pattern. Patient CT of the abdomen pelvis demonstrates expected evolution with decrease in size of patient's previously identified omental infarct and otherwise no acute findings. Patient did have some improvement in her pain after IV fluid hydration, Zofran, morphine and APAP. Case was discussed with Kendra Tafoya, general surgery PAC with Dr. Stanley, General surgery on-call who evaluated the patient. Dr. Stanley will admit to OR after discussion with patient. Triage Nursing notes reviewed and agree them. Prior medical records reviewed Vital Signs: reviewed and remarkable for no significant abnormalities Differential diagnosis: Appendicitis, ovarian cyst, ovarian torsion, ectopic , TOA, PID, infections, diverticulitis, UTI, obstruction, mesenteric ischemia, aortic pathology, inflammatory bowel disease, renal colic, PUD, pancreatitis, biliary pathology, hernia, volvulus, constipation, as well as other pathologies. ER treatment provided: See below. Diagnostics interpreted by me: ECG: None Cardiac Monitoring: An order for continuous cardiac monitoring was placed and demonstrated [] Laboratory studies: See below Imaging studies: See below Consultation(s): Kendra Tafoya, general surgery PAC with Dr. Stanley, General surgery on-call. HPI: The patient is a pleasant 40-year-old woman with a past medical history of acid reflux and breast CA who presents to the emergency department from the surgery clinic where she presented for evaluation for her abdominal pain related to an omental infarct that was identified on 06/[address] when she was seen in the emergency department. A small fat filled hernia was also present. The patient reports she has not moved her bowels since her last ED visit. She reports that her pain was so severe she barely made it to the appointment. She reports they referred to the emergency department given the severity of her pain where she is unable to be touching her abdomen without excruciating pain and severe nausea. She denies any fevers, chills, cough, congestion, urinary symptoms. ROS: See above HPI for pertinent positives & negatives. A total of 10 systems reviewed and were otherwise negative. PAST MEDICAL HISTORY:See Below PAST SURGICAL HISTORY:See Below FAMILY HISTORY:See Below SOCIAL HISTORY:See Below HOME MEDICATIONS:See Below ALLERGIES:See Below VITALS:See Below PHYSICAL EXAMINATION: GENERAL: Awake, alert, uncomfortable in significant pain distress. HENT: Normocephalic, atraumatic. Oropharynx dry mucous membranes. EYES: Normal conjunctiva. Sclera non-icteric. NECK: Supple. No nuchal rigidity. FROM. No JVD. RESPIRATORY: Clear to auscultation. CARDIAC: Regular rate, normal rhythm. Extremities warm and well perfused. Pulses equal. ABDOMEN: Soft, non-distended. Distended and diffusely tender with voluntary involuntary guarding and rebound. RECTAL: Deferred. MUSCULOSKELETAL: Chest examination reveals no tenderness. The back is symmetrical on inspection without obvious abnormality. There is no CVA tenderness to palpation. No joint edema. LOWER EXTREMITIES: Calves are equal size bilaterally and non-tender. No edema. No discoloration. NEURO: Normal sensorium. No sensory or motor deficits noted. SKIN: No rash or jaundice noted. Albaro Barber MD Past Med/Surg History Medical History Acid reflux Anxiety Breast cancer (~06/06/14) infiltrative ductal carcinoma [place] grade 2 of 3. ER positive [place] positive HER-2/altagracia negative right axillary node biopsy positive for metastatic carcinoma s/p b/l mastectomy with reconstruction with tissue expanders 6. Stage II, pT1c pN1a Adjuvant systemic chemotherapy consisting of 4 cycles of Taxotere and Cytoxan followed by 5 years of tamoxifen" Depression Ovarian cyst Uterine fibroid Surgical History H/O bilateral breast implants S/P mastectomy, bilateral (~2015) Family History Family/Other , 51 FH: kidney cancer Aunt Breast cancer Other No pertinent family history Social History Smoking Status: Never smoker Second Hand Exposure: No; Do You Dip or Chew Tobacco: No; Hx Alcohol Use: No Hx Substance Use: No Preferred Language: Telugu Communication Ability: Effective Plaster Pattern Caster Required: No Beliefs That Will Affect Care: None marital status: Current Living Situation: Spouse Feels Safe at Home: Yes Safety Concerns: Feels Safe At This Time Assistive Devices: Glasses Allergies Allergies Allergy/AdvReac Type Severity Reaction Status Date / Time ibuprofen AdvReac Mild HX OF ACID Verified 06/17/21 13:04 REFLUX Home Meds Home Medications Medication Instructions Recorded Confirmed multivitamin with minerals 1 tab PO DAILY 06/19/20 06/17/21 (Hair,Skin and Nails) Previous Rx's Medication Instructions Recorded famotidine 40 mg tablet 40 mg PO DAILY #30 tab 07/03/20 Results & Data (ED) Vital Signs Vital Signs - 24 hr 06/17/21 12:18 06/17/21 13:32 06/17/21 14:30 Temperature 36.6 C Temperature Source Temporal Artery Scan Pulse Rate 84 Pulse Rate [Apical] 72 75 Pulse Rhythm [Apical] Pulse Strength [Apical] Respiratory Rate 18 20 14 Respiratory Effort / Characteristics Non-Labored Respiratory Depth Normal Respiratory Pattern Blood Pressure 109/68 Blood Pressure [Left Arm] 114/75 115/73 Blood Pressure Mean 81 Blood Pressure Mean [Left Arm] 88 87 Blood Pressure Position [Left Arm] Pulse Oximetry 96 95 99 Oxygen Delivery Method Room Air Room Air Room Air Oxygen Flow Rate Sepsis Recent Fever Within 48 Hours No Sepsis New/Unexplained Change in Mental Status No Sepsis Action Taken by Nursing No Action Required 06/17/21 16:00 06/17/21 18:00 06/17/21 18:33 Temperature Temperature Source Pulse Rate 78 Pulse Rate [Apical] 83 72 Pulse Rhythm [Apical] Regular Pulse Strength [Apical] Respiratory Rate 19 22 Respiratory Effort / Characteristics Non-Labored Non-Labored Respiratory Depth Respiratory Pattern Blood Pressure 139/79 Blood Pressure [Left Arm] 117/80 139/79 Blood Pressure Mean Blood Pressure Mean [Left Arm] 92 99 Blood Pressure Position [Left Arm] Pulse Oximetry 99 97 98 Oxygen Delivery Method Room Air Room Air Room Air Oxygen Flow Rate Sepsis Recent Fever Within 48 Hours Sepsis New/Unexplained Change in Mental Status Sepsis Action Taken by Nursing 06/17/21 18:45 06/17/21 20:18 06/17/21 20:20 Temperature 36.8 C 36.2 C L Temperature Source Oral Temporal Artery Scan Pulse Rate Pulse Rate [Apical] 73 100 H 89 Pulse Rhythm [Apical] Regular Regular Regular Pulse Strength [Apical] Normal Normal Normal Respiratory Rate 16 16 20 Respiratory Effort / Characteristics Non-Labored Spontaneous Non-Labored Spontaneous Non-Labored Spontaneous Respiratory Depth Normal Normal Normal Respiratory Pattern Regular Regular Regular Blood Pressure Blood Pressure [Left Arm] 118/83 139/99 139/82 Blood Pressure Mean Blood Pressure Mean [Left Arm] 94 112 101 Blood Pressure Position [Left Arm] Semi-fowlers Semi-fowlers Semi-fowlers Pulse Oximetry 98 91 92 Oxygen Delivery Method Room Air Oxymask Oxymask Oxygen Flow Rate 10 10 Sepsis Recent Fever Within 48 Hours Sepsis New/Unexplained Change in Mental Status Sepsis Action Taken by Nursing Laboratory Data Attestation: I reviewed the patient's lab results. Result diagrams: 06/17/21 12:55 06/17/21 12:55 Lab Results 06/17/21 06/17/21 06/17/21 Range/Units 12:55 12:55 12:55 WBC 8.63 (4.8-10.8) K/uL RBC 4.18 L (4.2-5.4) M/uL Hgb 12.5 (12.0-16.0) g/dL Hct 38.3 (37-47) % MCV 91.6 (80-100) fL MCH 29.9 (25-34) pg MCHC 32.6 (32-36) g/dL RDW Std Deviation 48.4 H (36.4-46.3) fL RDW Coeff of Don 14.5 (11.5-14.5) % Plt Count 304 (130-400) K/uL MPV 10.2 (7.4-10.4) fL Immature Gran % (Auto) 0.2 % Neut % (Auto) 55.0 % Lymph % (Auto) 37.4 % [place] % (Auto) 5.1 % Eos % (Auto) 2.1 % Baso % (Auto) 0.2 % Neut # (Auto) 4.74 (1.4-6.5) K/uL Lymph # (Auto) 3.23 (1.2-3.4) K/uL [place] # (Auto) 0.44 (0.11-0.59) K/uL Eos # (Auto) 0.18 (0-0.5) K/uL Baso # (Auto) 0.02 (0-0.2) K/uL Immature Gran # (Auto) 0.02 (0.00-0.02) K/uL Sodium 137 (136-145) mmol/L Potassium 4.5 (3.5-5.1) mmol/L Chloride 99 (98-107) mmol/L Carbon Dioxide 32 (21-32) mmol/L Anion Gap 6 (3-11) BUN 15 (6-23) mg/dl Creatinine 1.06 (0.6-1.2) mg/dl Est Cr Clr Drug Dosing Not Reportable Est GFR ( Amer) 75.0 ml/min Est GFR (Non-Af Amer) 64.7 ml/min BUN/Creatinine Ratio 14.2 (10-20) Glucose 90 (70-99) mg/dl Lactate 1.0 (0.4-2.0) mmol/L Calcium 9.7 (8.5-10.1) mg/dl Total Bilirubin 0.4 (0.2-1.0) mg/dl AST 15 (13-39) U/L ALT 25 (7-52) U/L Alkaline Phosphatase 64 (34-104) U/L Troponin I (0-0.04) ng/ml Total Protein 7.5 (6.0-8.3) gm/dl Albumin 3.8 (3.4-5.0) gm/dl Globulin 3.7 (2.5-4.0) gm/dl Albumin/Globulin Ratio 1.0 (0.9-2) Lipase 17 (11-82) U/L HCG, Qual (Negative) Urine Color Urine Appearance (Clear) Urine pH (4.5-7.5) Ur Specific [place] (1.000-1.030) Urine Protein (Negative) Urine Glucose (UA) (Negative) Urine Ketones (Negative) Urine Blood (Negative) Urine Nitrite (Negative) Urine Bilirubin (Negative) Urine Urobilinogen (Negative) Ur Leukocyte Esterase (Negative) Urine WBC (Auto) (0-5) /hpf Urine RBC (Auto) (0-4) /hpf U Hyaline Cast (Auto) (0-5) /lpf U Epithel Cells (Auto) (0-5) /lpf Urine Bacteria (Auto) (Negative) SARS-CoV-2, RNA, NAAT (NEGATIVE) 06/17/21 06/17/21 06/17/21 Range/Units 12:55 12:55 13:05 WBC (4.8-10.8) K/uL RBC (4.2-5.4) M/uL Hgb (12.0-16.0) g/dL Hct (37-47) % MCV (80-100) fL MCH (25-34) pg MCHC (32-36) g/dL RDW Std Deviation (36.4-46.3) fL RDW Coeff of Don (11.5-14.5) % Plt Count (130-400) K/uL MPV (7.4-10.4) fL Immature Gran % (Auto) % Neut % (Auto) % Lymph % (Auto) % [place] % (Auto) % Eos % (Auto) % Baso % (Auto) % Neut # (Auto) (1.4-6.5) K/uL Lymph # (Auto) (1.2-3.4) K/uL [place] # (Auto) (0.11-0.59) K/uL Eos # (Auto) (0-0.5) K/uL Baso # (Auto) (0-0.2) K/uL Immature Gran # (Auto) (0.00-0.02) K/uL Sodium (136-145) mmol/L Potassium (3.5-5.1) mmol/L Chloride (98-107) mmol/L Carbon Dioxide (21-32) mmol/L Anion Gap (3-11) BUN (6-23) mg/dl Creatinine (0.6-1.2) mg/dl Est Cr Clr Drug Dosing Est GFR ( Amer) ml/min Est GFR (Non-Af Amer) ml/min BUN/Creatinine Ratio (10-20) Glucose (70-99) mg/dl Lactate (0.4-2.0) mmol/L Calcium (8.5-10.1) mg/dl Total Bilirubin (0.2-1.0) mg/dl AST (13-39) U/L ALT (7-52) U/L Alkaline Phosphatase (34-104) U/L Troponin I < 0.03 (0-0.04) ng/ml Total Protein (6.0-8.3) gm/dl Albumin (3.4-5.0) gm/dl Globulin (2.5-4.0) gm/dl Albumin/Globulin Ratio (0.9-2) Lipase (11-82) U/L HCG, Qual Negative (Negative) Urine Color Urine Appearance (Clear) Urine pH (4.5-7.5) Ur Specific [place] (1.000-1.030) Urine Protein (Negative) Urine Glucose (UA) (Negative) Urine Ketones (Negative) Urine Blood (Negative) Urine Nitrite (Negative) Urine Bilirubin (Negative) Urine Urobilinogen (Negative) Ur Leukocyte Esterase (Negative) Urine WBC (Auto) (0-5) /hpf Urine RBC (Auto) (0-4) /hpf U Hyaline Cast (Auto) (0-5) /lpf U Epithel Cells (Auto) (0-5) /lpf Urine Bacteria (Auto) (Negative) SARS-CoV-2, RNA, NAAT NEGATIVE (NEGATIVE) 06/17/21 Range/Units 15:14 WBC (4.8-10.8) K/uL RBC (4.2-5.4) M/uL Hgb (12.0-16.0) g/dL Hct (37-47) % MCV (80-100) fL MCH (25-34) pg MCHC (32-36) g/dL RDW Std Deviation (36.4-46.3) fL RDW Coeff of Don (11.5-14.5) % Plt Count (130-400) K/uL MPV (7.4-10.4) fL Immature Gran % (Auto) % Neut % (Auto) % Lymph % (Auto) % [place] % (Auto) % Eos % (Auto) % Baso % (Auto) % Neut # (Auto) (1.4-6.5) K/uL Lymph # (Auto) (1.2-3.4) K/uL [place] # (Auto) (0.11-0.59) K/uL Eos # (Auto) (0-0.5) K/uL Baso # (Auto) (0-0.2) K/uL Immature Gran # (Auto) (0.00-0.02) K/uL Sodium (136-145) mmol/L Potassium (3.5-5.1) mmol/L Chloride (98-107) mmol/L Carbon Dioxide (21-32) mmol/L Anion Gap (3-11) BUN (6-23) mg/dl Creatinine (0.6-1.2) mg/dl Est Cr Clr Drug Dosing Est GFR ( Amer) ml/min Est GFR (Non-Af Amer) ml/min BUN/Creatinine Ratio (10-20) Glucose (70-99) mg/dl Lactate (0.4-2.0) mmol/L Calcium (8.5-10.1) mg/dl Total Bilirubin (0.2-1.0) mg/dl AST (13-39) U/L ALT (7-52) U/L Alkaline Phosphatase (34-104) U/L Troponin I (0-0.04) ng/ml Total Protein (6.0-8.3) gm/dl Albumin (3.4-5.0) gm/dl Globulin (2.5-4.0) gm/dl Albumin/Globulin Ratio (0.9-2) Lipase (11-82) U/L HCG, Qual (Negative) Urine Color Yellow Urine Appearance Clear (Clear) Urine pH 5.5 (4.5-7.5) Ur Specific [place] > 1.045 H (1.000-1.030) Urine Protein Negative (Negative) Urine Glucose (UA) Negative (Negative) Urine Ketones Negative (Negative) Urine Blood 3+ H (Negative) Urine Nitrite Negative (Negative) Urine Bilirubin Negative (Negative) Urine Urobilinogen Negative (Negative) Ur Leukocyte Esterase Trace H (Negative) Urine WBC (Auto) 10-30 H (0-5) /hpf Urine RBC (Auto) >30 H (0-4) /hpf U Hyaline Cast (Auto) 1-5 (0-5) /lpf U Epithel Cells (Auto) >30 H (0-5) /lpf Urine Bacteria (Auto) Negative (Negative) SARS-CoV-2, RNA, NAAT (NEGATIVE) Administered Medications Hydromorphone HCl (Hydromorphone Inj 0.5 Mg/0.5 Ml Syr) 0.5 mg IV Q6H PRN PRN Reason: Pain Stop: 07/01/21 21:19 Last Admin: 06/17/21 22:04 Dose: 0.5 mg Documented by: [id number] Lactated Ringer's (Lr) 1,000 mls @ 80 mls/hr IV .[id number] [facility] Stop: 07/17/21 21:19 Last Admin: 06/17/21 22:05 Dose: 80 mls/hr Documented by: [id number] Cefazolin Sodium (Ancef 2000mg) 2,000 mg in 15 mls @ 3.75 mls/min IV Q8H [facility] Stop: 06/19/21 02:44 Last Admin: 06/18/21 02:25 Dose: 3.75 mls/min Documented by: [id number] Ondansetron HCl (Ondansetron Inj 2 Mg/Ml 2 Ml Vial) 4 mg IV Q6H PRN PRN Reason: Nausea Stop: 07/17/21 20:25 Last Admin: 06/17/21 22:11 Dose: 4 mg Documented by: [id number] Oxycodone/Acetaminophen (Oxycodone/Acetaminophen 5mg/325mg Tab) 1 tab PO Q4H PRN PRN Reason: Pain Stop: 07/01/21 21:19 Last Admin: 06/18/21 03:59 Dose: 1 tab Documented by: [id number] Admin: 06/17/21 23:53 Dose: 1 tab Documented by: [id number] Discontinued Medications Bacitracin (Bacitracin Oint 15 Gm Tube) Confirm Administered Dose 45 appln .OREN PittSTK-MED ONE Stop: 06/17/21 18:49 Last Admin: 06/17/21 20:05 Dose: 45 appln Documented by: [id number] Bupivacaine HCl (Bupivacaine 0.5 % 5 Mg/1 Ml Mpf 30ml Vial) Confirm Administered Dose 30 ml .ROUTE .STK-MED ONE Stop: 06/17/21 18:49 Last Admin: 06/17/21 20:06 Dose: 10 ml Documented by: [id number] Fentanyl Citrate (Fentanyl Citrate 100 Mcg/2 Ml Vial) 50 mcg IV Q5M PRN PRN Reason: PACU Use Only-Pain Stop: 06/18/21 02:52 Last Admin: 06/17/21 20:44 Dose: 50 mcg Documented by: [id number] Admin: 06/17/21 20:39 Dose: 50 mcg Documented by: [id number] Admin: 06/17/21 20:25 Dose: 50 mcg Documented by: [id number] Sodium Chloride (Nss 1000ml) 1,000 mls @ 999 mls/hr IV .Q1H1M ONE Stop: 06/17/21 13:40 Last Infusion: 06/17/21 14:33 Dose: 0 mls/hr Documented by: [id number] Admin: 06/17/21 13:08 Dose: 999 mls/hr Documented by: [id number] Acetaminophen (Ofirmev) 1,000 mg in 100 mls @ 400 mls/hr IV NOW STA Stop: 06/17/21 12:54 Last Infusion: 06/17/21 13:23 Dose: 0 mls/hr Documented by: [id number] Admin: 06/17/21 13:08 Dose: 400 mls/hr Documented by: [id number] Cefazolin Sodium (Ancef 2000mg) 2,000 mg in 15 mls @ 3.75 mls/min IV PREOP ONE Stop: 06/17/21 18:48 Last Admin: 06/17/21 18:59 Dose: 3.75 mls/min Documented by: [id number] Ioversol (Optiray 320 100ml) 94 ml IV ONCE ONE Stop: 06/17/21 14:19 Last Admin: 06/17/21 14:19 Dose: 94 ml Documented by: [id number] Lidocaine HCl (Lidocaine 1% Local 20 Ml Vial) Confirm Administered Dose 20 ml .ROUTE .STK-MED ONE Stop: 06/17/21 18:49 Last Admin: 06/17/21 20:06 Dose: 10 ml Documented by: [id number] Morphine Sulfate (Morphine Sulfate 10 Mg/Ml Carp/Vial) 6 mg IV NOW STA Stop: 06/17/21 12:41 Last Admin: 06/17/21 13:09 Dose: 6 mg Documented by: [id number] Ondansetron HCl (Ondansetron Inj 2 Mg/Ml 2 Ml Vial) 4 mg IV NOW STA Stop: 06/17/21 12:41 Last Admin: 06/17/21 13:08 Dose: 4 mg Documented by: [id number] Imaging Data Radiologist's Impression: Abdomen/Pelvis CT 06/17/21 12:39 CT OF THE ABDOMEN AND PELVIS WITH CONTRAST CLINICAL HISTORY: Abdominal pain. COMPARISON STUDY: CT of the abdomen and pelvis June 11, 2021. TECHNIQUE: Following IV administration of 94 mL of Optiray, axial images of the abdomen and pelvis were obtained from the lung bases to the proximal femurs. Images were reviewed in the axial, sagittal, and coronal planes. IV contrast was administered without complication. Automated exposure control was utilized for the study. A dose lowering technique was utilized adhering to the principles of ALARA. CT DOSE: 692.37 mGy.cm FINDINGS: Lung bases are unremarkable. Bilateral breast implants are partially imaged. An 8 mm nodule within the lower inner quadrant of the right breast is unchanged from earlier exams. This is probably benign. No pneumatosis, free air or portal venous gas is present. The liver, spleen, adrenal glands, kidneys and pancreas are unremarkable. There is no hydronephrosis. There is no biliary or pancreatic ductal dilatation. The appendix is normal. There is no evidence for a bowel obstruction. Note is made of a 2.1 cm focus infiltration within the anterior omentum shown on axial image 179 of 416. This has decreased in extent since prior exam. This likely reflects an evolving omental infarct. Small fat- containing umbilical hernia is present. Several fibroids are present. The uterus is enlarged. This is unchanged. Major vasculature is patent. There is no lymphadenopathy or ascites. No hydronephrosis is present. No acute fracture or suspicious lesion is identified within the visualized skeletal structures. IMPRESSION: 1. No acute process within the abdomen or pelvis. 2. Expected evolution of the omental infarct shown on CT of June 11, 2021. 3. Fibroid uterus. 4. Normal appendix. No bowel obstruction. No bowel wall thickening. ACT 112: Negative or not required by law. Electronically signed by: Mike Gibson M.D. 06/17/2021 2:46 PM KUB X-Ray 06/17/21 12:42 KUB HISTORY: Acute generalized abdominal pain abd pain COMPARISON: CT abdomen pelvis 06/11/2021 FINDINGS: There is moderate fecal retention. The bowel gas pattern is nonob structive. Pelvic basin phleboliths. No renal calculi. No ureteral calculi. No pneumoperitoneum or pneumatosis. No fracture. IMPRESSION: Moderate fecal retention with nonobstructive bowel gas pattern. ACT 112: Negative or not required by law. The above report was generated using voice recognition software. It may contain grammatical, syntax or spelling errors. Electronically signed by: Juan Hernandez M.D. 06/17/2021 1:30 PM Discharge Plan Visit Data Chief Complaint: Abdominal Pain Stated Complaint: DR CHAN, ABDOMINAL PAIN, DIZZY, NAUSEA ED Provider: Albaro Barber Discharge Problem: Incarcerated umbilical hernia, Omental infarction, Abdominal pain Patient Disposition: Admitted As Inpatient Discharge Instructions Interventions: ED Discharge Assessment Last Done: 06/17/21 18:33
--- NOTE | 2021-06-17 13:31 | XRay Report ---
KUB HISTORY: Acute generalized abdominal pain abd pain COMPARISON: CT abdomen pelvis 06/11/2021 FINDINGS: There is moderate fecal retention. The bowel gas pattern is nonobstructive. Pelvic basin ph leboliths. No renal calculi. No ureteral calculi. No pneumoperitoneum or pneumatosis. No fracture. IMPRESSION: Moderate fecal retention with nonobstructive bowel gas pattern. ACT 112: Negative or not required by law. The above report was generated using voice recognition software. It may contain grammatical, syntax o r spelling errors. Electronically signed by: Juan Hernandez M.D. 06/17/2021 1:30 PM
[2021-06-17 13:36] LABS: Pregnancy Test, Serum Negative (Negative)
[2021-06-17 13:38] LABS: Albumin Level 3.8 gm/dl (3.4-5.0); Anion Gap 6 (3-11); Bilirubin,Total 0.4 mg/dl (0.2-1.0); Calcium 9.7 mg/dl (8.5-10.1); Carbon Dioxide 32 mmol/L (21-32); Chloride 99 mmol/L (98-107); Potassium 4.5 mmol/L (3.5-5.1); Sodium 137 mmol/L (136-145)
[2021-06-17 13:45] LABS: Alanine Aminotransferase 25 U/L (7-52); Alkaline Phosphatase 64 U/L (34-104); Aspartate Aminotransferase 15 U/L (13-39); BUN Creatinine Ratio 14.2 (10-20); Blood Urea Nitrogen 15 mg/dl (6-23); Est GFR (Non-African American) 64.7 ml/min; Globulin 3.7 gm/dl (2.5-4.0); Glucose 90 mg/dl (70-99); Lipase 17 U/L (11-82); Total Protein 7.5 gm/dl (6.0-8.3)
[2021-06-17] MEDS ORDERED: OPTIRAY 320 100ml IV ONE (14:18)
--- NOTE | 2021-06-17 14:47 | CT Scan Report ---
CT OF THE ABDOMEN AND PELVIS WITH CONTRAST CLINICAL HISTORY: Abdominal pain. COMPARISON STUDY: CT of the abdomen and pelvis June 11, 2021. TECHNIQUE: Following IV administration of 94 mL of Optiray, axial images of the abdomen and pelvis we re obtained from the lung bases to the proximal femurs. Images were reviewed in the axial, sagittal, and coronal planes. IV contrast was administered without complication. Automated exposure control wa s utilized for the study. A dose lowering technique was utilized adhering to the principles of ALARA . CT DOSE: 692.37 mGy.cm FINDINGS: Lung bases are unremarkable. Bilateral breast implants are partially imaged. An 8 mm nodule within the lower inner quadrant of the right breast is unchanged from earlier exams. This is probabl y benign. No pneumatosis, free air or portal venous gas is present. The liver, spleen, adrenal glands , kidneys and pancreas are unremarkable. There is no hydronephrosis. There is no biliary or pancreati c ductal dilatation. The appendix is normal. There is no evidence for a bowel obstruction. Note is ma de of a 2.1 cm focus infiltration within the anterior omentum shown on axial image 179 of 416. This h as decreased in extent since prior exam. This likely reflects an evolving omental infarct. Small fat- containing umbilical hernia is present. Several fibroids are present. The uterus is enlarged. This is unchanged. Major vasculature is patent. There is no lymphadenopathy or ascites. No hydronephrosis is present. No acute fracture or suspicious lesion is identified within the visualized skeletal structu res. IMPRESSION: 1. No acute process within the abdomen or pelvis. 2. Expected evolution of the omental infarct shown on CT of June 11, 2021. 3. Fibroid uterus. 4. Normal appendix. No bowel obstruction. No bowel wall thickening. ACT 112: Negative or not required by law. Electronically signed by: Mike Gibson M.D. 06/17/2021 2:46 PM
[2021-06-17 15:26] LABS: Appearance Urine Clear (Clear); Bacteria Urine Automated Negative (Negative); Bilirubin Urine Negative (Negative); Blood Urine 3+ (Negative); Color Urine Yellow; Epithelial Cell Urine Auto >30 /lpf (0-5); Glucose Urine UA Negative (Negative); Ketones Urine Negative (Negative); Leukocyte Esterase Urine Trace (Negative); Nitrite Urine Negative (Negative); Protein Urine Negative (Negative); RBC Urine Automated >30 /hpf (0-4); Specific Gravity Urine > 1.045 (1.000-1.030); Urobilinogen Urine Negative (Negative); pH Urine 5.5 (4.5-7.5)
--- NOTE | 2021-06-17 18:22 | Surgery Consultation ---
Date of Consultation June 17, 2021 Assessment & Plan (1) Abdominal pain: see below (2) Incarcerated umbilical hernia: pt is a40 year-old female who presents to ER with one week history periumbilical pain, IMP: incarcerated umbilical hernia, plan, I recommend to do open repair umbilical hernia possible with mesh, D/W benefits, risks and alternatives of the surgery, the risks - infection, bleeding, hernia recurrence, injury other organs, bowel obstruction, complications relate to mesh, may need more procedure such as EGD to R/O gastric ulcer disease, pt understood, she agrees with the surgery, she signed informed consent, I answered all questions, pre-op antibiotic, History of Present Illness Reason for Consultation: periumbilical pain Requesting Physician: Albaro Barber MD History of Present Illness CC: periumbilical pain HPI: The patient is a pleasant 40-year-old woman with a past medical history of acid reflux who presents emerged department from the surgery clinic where she presented for evaluation for her abdominal pain related to an omental infarct that was identified on 06/[address] when she was seen in the emergency department. Patient reports she has not moved her bowels since her last ED visit. She reports that her pain was so severe she barely made it to the appointment. She reports they referred to the emergency department given the severity of her pain where she is unable to be touching her abdomen without excruciating pain and severe nausea. She denies any fevers, chills, cough, congestion, urinary symptoms. I ( Sariah Stanley MD ) got a call for consult periumbilical; pain, I reviewed pt's H/P, labs, CT scan with pt , pt is still have periumbilical pain , no back pain, no heart burn, Past Med/Surg History Medical History Acid reflux Anxiety Breast cancer (~06/06/14) infiltrative ductal carcinoma [place] grade 2 of 3. ER positive [place] positive HER-2/altagracia negative right axillary node biopsy positive for metastatic carcinoma s/p b/l mastectomy with reconstruction with tissue expanders 6. Stage II, pT1c pN1a Adjuvant systemic chemotherapy consisting of 4 cycles of Taxotere and Cytoxan followed by 5 years of tamoxifen"Depression Ovarian cyst Uterine fibroid Surgical History H/O bilateral breast implants S/P mastectomy, bilateral (~2015) Family History Family/Other , 51 FH: kidney cancerAunt Breast cancerOther No pertinent family history Social History Smoking Status: Never smoker Preferred Language: Angolan marital status: Current Living Situation: Spouse Feels Safe at Home: Yes Allergies Allergies Allergy/AdvReac Type Severity Reaction Status Date / Time ibuprofen AdvReac Mild HX OF ACID Verified 06/17/21 13:04 REFLUX Home Meds Home Medications Medication Instructions Recorded Confirmed multivitamin with minerals 1 tab PO DAILY 06/19/20 06/17/21 (Hair,Skin and Nails) Previous Rx's Medication Instructions Recorded famotidine 40 mg tablet 40 mg PO DAILY #30 tab 07/03/20 Results & Data (ED) Vital Signs Vital Signs - 24 hr 06/17/21 12:18 Temperature 36.6 C Temperature Source Temporal Artery Scan Pulse Rate 84 Respiratory Rate 18 Respiratory Effort / Characteristics Non-Labored Respiratory Depth Normal Blood Pressure 109/68 Blood Pressure Mean 81 Pulse Oximetry 96 Oxygen Delivery Method Room Air Sepsis Recent Fever Within 48 Hours No Sepsis New/Unexplained Change in Mental Status No Sepsis Action Taken by Nursing No Action Required Allergies Allergy/AdvReac Type Severity Reaction Status Date / Time ibuprofen AdvReac Mild HX OF ACID Verified 06/17/21 13:04 REFLUX Home Medications Medication Instructions Recorded Confirmed Type multivitamin with minerals 1 tab PO DAILY 06/19/20 06/17/21 History (Hair,Skin and Nails) famotidine 40 mg tablet 40 mg PO DAILY #30 tab 07/03/20 06/17/21 Rx Patient History Medical History Acid reflux Anxiety Breast cancer (~06/06/14) infiltrative ductal carcinoma [place] grade 2 of 3. ER positive [place] positive HER-2/altagracia negative right axillary node biopsy positive for metastatic carcinoma s/p b/l mastectomy with reconstruction with tissue expanders 6. Stage II, pT1c pN1a Adjuvant systemic chemotherapy consisting of 4 cycles of Taxotere and Cytoxan followed by 5 years of tamoxifen" Depression Ovarian cyst Uterine fibroid Surgical History H/O bilateral breast implants S/P mastectomy, bilateral (~2015) Family History Family/Other , 51 FH: kidney cancer Aunt Breast cancer Other No pertinent family history Social History Smoking Status: Never smoker Preferred Language: Angolan marital status: Current Living Situation: Spouse Feels Safe at Home: Yes Review of Systems Constitutional: as per Subjective / HPI Eyes: as per Subjective / HPI Respiratory: as per Subjective / HPI Cardiovascular: as per Subjective / HPI Gastrointestinal: as per Subjective / HPI Genitourinary: S/P Diagnosis laparoscopy Musculoskeletal: as per Subjective / HPI Neurologic: as per Subjective / HPI Psychiatric: as per Subjective / HPI Endocrine: as per Subjective / HPI Hematologic / Lymphatic: as per Subjective / HPI Physical Exam Constitutional: WD/WN, vitals as above Eyes: PERRL, conjunctivae normal, anicteric sclerae Neck: trachea midline, no thyromegaly Respiratory: normal respiratory effort, lungs clear to auscultation Cardiovascular: RRR, no murmur, no edema Gastrointestinal (Abdomen): Percussion/Palpation: + abdomen tender, + guarding, abdomen soft and + hernia (umbilical hernia, could not reducible, BS +) soft, tenderness periumbilical area, incarcerated umbilical hernia +, could not reduce Musculoskeletal: no cyanosis or clubbing, extremities motor strength 5/5 Neurologic: patellar DTR's 2+ bilat, sensation intact Psychiatric: A+Ox3, euthymic affect Results & Data ([facility]) Vital Signs (Past 12 Hours) Vital Signs Temp Pulse Pulse Resp BP BP Pulse Ox 06/17/21 18:00 72 22 139/79 97 06/17/21 16:00 83 19 117/80 99 06/17/21 14:30 75 14 115/73 99 06/17/21 13:32 72 20 114/75 95 06/17/21 12:18 36.6 C 84 18 109/68 96 Laboratory Results Abnormal lab results 06/17/21 06/17/21 Range/Units 12:55 15:14 RBC 4.18 L (4.2-5.4) M/uL RDW Std Deviation 48.4 H (36.4-46.3) fL Ur Specific [place] > 1.045 H (1.000-1.030) Urine Blood 3+ H (Negative) Ur Leukocyte Esterase Trace H (Negative) Urine WBC (Auto) 10-30 H (0-5) /hpf Urine RBC (Auto) >30 H (0-4) /hpf U Epithel Cells (Auto) >30 H (0-5) /lpf Diagnostic Findings CT OF THE ABDOMEN AND PELVIS WITH CONTRAST CLINICAL HISTORY: Abdominal pain. COMPARISON STUDY: CT of the abdomen and pelvis June 11, 2021. TECHNIQUE: Following IV administration of 94 mL of Optiray, axial images of the abdomen and pelvis were obtained from the lung bases to the proximal femurs. Images were reviewed in the axial, sagittal, and coronal planes. IV contrast was administered without complication. Automated exposure control was utilized for the study. A dose lowering technique was utilized adhering to the principles of ALARA. CT DOSE: 692.37 mGy.cm FINDINGS: Lung bases are unremarkable. Bilateral breast implants are partially imaged. An 8 mm nodule within the lower inner quadrant of the right breast is unchanged from earlier exams. This is probably benign. No pneumatosis, free air or portal venous gas is present. The liver, spleen, adrenal glands, kidneys and pancreas are unremarkable. There is no hydronephrosis. There is no biliary or pancreatic ductal dilatation. The appendix is normal. There is no evidence for a bowel obstruction. Note is made of a 2.1 cm focus infiltration within the anterior omentum shown on axial image 179 of 416. This has decreased in extent since prior exam. This likely reflects an evolving omental infarct. Small fat- containing umbilical hernia is present. Several fibroids are present. The uterus is enlarged. This is unchanged. Major vasculature is patent. There is no lymphadenopathy or ascites. No hydronephrosis is present. No acute fracture or suspicious lesion is identified within the visualized skeletal structures. IMPRESSION: 1. No acute process within the abdomen or pelvis. 2. Expected evolution of the omental infarct shown on CT of June 11, 2021. 3. Fibroid uterus. 4. Normal appendix. No bowel obstruction. No bowel wall thickening. (1) Abdominal pain Abdominal location: generalized Qualified Code(s): R10.84 - Generalized abdominal pain
--- NOTE | 2021-06-17 18:29 | Electrocardiogram Report ---
Test Reason : Blood Pressure : / mmHG Vent. Rate : 070 BPM Atrial Rate : 070 BPM P-R Int : 138 ms QRS Dur : 080 ms QT Int : 406 ms P-R-T Axes : 055 046 033 degrees QTc Int : 438 ms Normal sinus rhythm with sinus arrhythmia Nonspecific T wave abnormality Anterior leads Abnormal ECG When compared with ECG of 11-JUN-2021 12:26, No significant change was found Confirmed by Mohan Valentino ([id number]) on 06/17/2021 6:28:37 PM Referred By: NO PCP Confirmed By:Mohan Valentino
[2021-06-17] MEDS ORDERED: MIDAZOLAM HCL 1 MG/ML 2ML VIAL ONE (18:31)
[2021-06-17] MEDS ORDERED: PROPOFOL IV EMULSION 10 MG/ML 20 ML VIAL IV ONE (18:31)
[2021-06-17] MEDS ORDERED: LIDOCAINE 2% 2 ML VIAL/AMP(20MG/ML) INFIL ONE (18:31)
[2021-06-17] MEDS ORDERED: ONDANSETRON INJ 2 MG/ML 2 ML VIAL ONE (18:31)
[2021-06-17] MEDS ORDERED: fentaNYL citrate 100 MCG/2 ML VIAL ONE (18:31)
--- NOTE | 2021-06-17 18:38 | History & Physical Bridge Note ---
Date of Service June 17, 2021 History & Physical Bridge Note I have examined the patient, reviewed the History & Physical and in the interval since the performance of the History & Physical I have noted the following changes of clinical significance: no changes noted
[2021-06-17] MEDS ORDERED: ceFAZolin 2000MG 2,000 MG/15 ML SYR IV ONE (18:45)
[2021-06-17] MEDS ORDERED: BACITRACIN OINT 15 GM TUBE ONE (18:48)
[2021-06-17] MEDS ORDERED: BUPIVACAINE 0.5 % 5 MG/1 ML MPF 30ML VIAL ONE (18:48)
[2021-06-17] MEDS ORDERED: LIDOCAINE 1% LOCAL 20 ML VIAL ONE (18:48)
[2021-06-17] MEDS ORDERED: PROMETHAZINE HCL 6.25 MG in SODIUM CHLORIDE 0.9% 50 ML IV PRN (18:52)
[2021-06-17] MEDS ORDERED: ATROPINE SULFATE 0.1 MG/ML 10ML SYR IV PRN (18:52)
[2021-06-17] MEDS ORDERED: ePHEDrine sulfate 50 MG/ML AMP IV PRN (18:52)
[2021-06-17] MEDS ORDERED: ONDANSETRON INJ 2 MG/ML 2 ML VIAL IV PRN ×2 (18:52→20:26)
--- NOTE | 2021-06-17 18:53 | Anesthesiology Consultation ---
Date of Service June 17, 2021 Assessment & Plan Chart Review Chart Review: Acceptable Risk for Surgery and Patient NOT seen in Pre Admission Testing Consults Requested none ASA [id number] Proposed Anesthesia Anesthesia Type: General (rsi) Risk / Benefits Reviewed With: PT / POA / Parent / Guardian, Accepts Plan and Informed Consent Obtained History Surgery Operation Date: 06/17/21 20:00 Proposed Procedures p Umbilical Hernia Repair - Sariah Stanley MD Height/Weight Height: 5 ft 6 in Weight: 90.718 kg Allergies Allergy/AdvReac Type Severity Reaction Status Date / Time ibuprofen AdvReac Mild HX OF ACID Verified 06/17/21 13:04 REFLUX Medications Home Medications Medication Instructions Recorded Confirmed Last Taken multivitamin with minerals 1 tab PO DAILY 06/19/20 06/17/21 06/17/21 (Hair,Skin and Nails) famotidine 40 mg tablet 40 mg PO DAILY #30 tab 07/03/20 06/17/21 06/17/21 NPO Date Last Intake of Fluids: 06/17/21 Time Last Intake of Fluids: 09:00 Date Last Intake of Solids: 06/16/21 Time Last Intake of Solids: 19:00 Past Medical History Medical History Acid reflux Anxiety Breast cancer (~06/06/14) infiltrative ductal carcinoma [place] grade 2 of 3. ER positive [place] positive HER-2/altagracia negative right axillary node biopsy positive for metastatic carcinoma s/p b/l mastectomy with reconstruction with tissue expanders 6. Stage II, pT1c pN1a Adjuvant systemic chemotherapy consisting of 4 cycles of Taxotere and Cytoxan followed by 5 years of tamoxifen" Depression Ovarian cyst Uterine fibroid Exercise / Class Metabolic Activity II 4-5 Yardwork/Stairs/Walk up hill Past Family History Family History Family/Other , 51 FH: kidney cancer Aunt Breast cancer Other No pertinent family history Past Surgical History Surgical History H/O bilateral breast implants S/P mastectomy, bilateral (~2015) Past Anesthesia History No Hx of Anesthesia Complications and No Family Hx of Anesthesia Complications History of PONV No Hx of PONV and No Hx of Motion Sickness Social History Smoking Status: Never smoker Physical Exam Vital Signs Last Vital Signs Temp 36.8 C 06/17/21 18:45 Pulse 73 06/17/21 18:45 Resp 16 06/17/21 18:45 BP 118/83 06/17/21 18:45 Pulse Ox 98 06/17/21 18:45 ENMT Mouth: no dentition abnormality Thyromental Distance: > or= 3.5 Finger Breadths Mallampati Class: II Neck normal visual inspection Respiratory normal respiratory effort Auscultation: lungs clear to auscultation bilaterally Cardiovascular Rate/Rhythm: regular rate and regular rhythm Psychiatric Orientation: alert Testing Laboratory Results 06/17/21 12:55 06/17/21 12:55 Urine Color Yellow 06/17/21 15:14 Urine Appearance Clear (Clear) 06/17/21 15:14 Urine pH 5.5 (4.5-7.5) 06/17/21 15:14 Ur Specific [place] > 1.045 (1.000-1.030) H 06/17/21 15:14 Urine Protein Negative (Negative) 06/17/21 15:14 Urine Glucose (UA) Negative (Negative) 06/17/21 15:14 Urine Ketones Negative (Negative) 06/17/21 15:14 Urine Nitrite Negative (Negative) 06/17/21 15:14 Ur Leukocyte Esterase Trace (Negative) H 06/17/21 15:14 Urine WBC (Auto) 10-30 /hpf (0-5) H 06/17/21 15:14 Urine RBC (Auto) >30 /hpf (0-4) H 06/17/21 15:14 U Hyaline Cast (Auto) 1-5 /lpf (0-5) 06/17/21 15:14 U Epithel Cells (Auto) >30 /lpf (0-5) H 06/17/21 15:14 Urine Bacteria (Auto) Negative (Negative) 06/17/21 15:14
[2021-06-17] MEDS ORDERED: DEXAMETHASONE SOD INJ 4 MG/ML VIAL ONE (19:13)
[2021-06-17] MEDS ORDERED: MoRPHine SULFATE PF 1 MG/ML 10 ML AMP/VIAL ONE (19:18)
--- NOTE | 2021-06-17 20:12 | Post Operative Brief Note ---
Immediate Post Op Note v1 Date of Surgery June 17, 2021 Pre & Post Diagnosis Operation Date: 06/17/21 20:00 Pre-Op Diagnosis: Abdominal pain, Incarcerated umbilical hernia Post-Op Diagnosis: Abdominal pain, Incarcerated umbilical hernia, omental mass I identified the patient and participated in the time-out.: Yes Procedure Operation Date: 06/17/21 20:00 Actual Procedures p Open Repair of Incarcerated Umbilical Hernia, resection omental mass - Sariah Stanley MD Surgeon Sariah Stanley MD Motor Block Mechanic heating technician Estimated Blood Loss 5 Findings Consistent with Post-Op Diagnosis incarcerated umbilical hernia, marion hernai size about 1.5 x 1.5 cm, omental mass, the mass size about 1.8 x1.8cm Fluids 600ml Specimens omental mass Anesthesia Type General Complications none Disposition Accompanied Patient To Recovery: Yes
[2021-06-17] MEDS: fentaNYL citrate 100 MCG/2 ML VIAL IV PRN ×3 (20:25→20:44)
--- NOTE | 2021-06-17 21:03 | Anesthesiology Progress Note ---
Date of Service June 17, 2021 Anesthesia Post Procedure Vital Signs Vital Signs: Temp Pulse Pulse Resp BP BP Pulse Ox 06/17/21 20:50 96 H 16 139/75 97 06/17/21 20:40 70 12 146/87 H 95 06/17/21 20:30 73 18 127/83 95 06/17/21 20:20 89 20 139/82 92 06/17/21 20:18 36.2 C L 100 H 16 139/99 91 06/17/21 18:45 36.8 C 73 16 118/83 98 06/17/21 18:33 78 139/79 98 06/17/21 18:00 72 22 139/79 97 06/17/21 16:00 83 19 117/80 99 06/17/21 14:30 75 14 115/73 99 06/17/21 13:32 72 20 114/75 95 06/17/21 12:18 36.6 C 84 18 109/68 96 Pain Intensity Abdomen: Pain Intensity: 4 Transfer of Care Handoff Completed per policy Notes Mental Status: alert / awake / arousable Patient Amnestic to Procedure: Yes Nausea / Vomiting: adequately controlled Pain: adequately controlled Airway Patency, RR, SpO2: stable & adequate BP & HR: stable & adequate Hydration State: stable & adequate Anesthetic Complications: no major complications apparent
[2021-06-17] MEDS ORDERED: HYDROmorphone INJ 0.5 MG/0.5 ML SYR IV PRN (21:20)
[2021-06-17] MEDS ORDERED: ceFAZolin 1000MG 1,000 MG/7.5 ML SYR IV SCH (21:20)
[2021-06-17] MEDS: LACTATED RINGER'S 1,000 ML IV SCH (22:05)
--- NOTE | 2021-06-17 23:20 | Operative Report (OR) ---
DATE OF PROCEDURE: 06/17/2021. PREOPERATIVE DIAGNOSIS: Abdominal pain, incarcerated umbilical hernia. POSTOPERATIVE DIAGNOSIS: Abdominal pain, incarcerated umbilical hernia, omental mass, the mass size is about 1.8 x 1.8 cm. PROCEDURE: Open repair of umbilical hernia, resection of omental mass. SURGEON: Sariah Stanley MD ANESTHESIA: General. ESTIMATED BLOOD LOSS: About 5 mL. FINDINGS: Incarcerated umbilical hernia. The hernia size is about 1.5 x 1.5 cm and omental mass, the mass size about 1.8 x 1.8 cm. COMPLICATIONS: None. INDICATIONS FOR THE PROCEDURE: This is a 40-year-old female who presented to the ED with a 1-week history of acute periumbilical pain and the patient's pain is getting worse. The patient had a CT scan and found the patient had omental infarction, and umbilical hernia. On physical exam, the umbilical hernia is not reducible. Diagnosis is incarcerated umbilical hernia. I recommended to do the open repair of umbilical hernia, possible mesh. I did talk to the patient about the benefits, risks, alternate procedures. I indicated the risks may include, but not limited to, such as bleeding, infection, hernia recurrence, incisional hernia, and complications related to mesh, injury to other organs, bowel obstruction. The patient understands. She signed informed consent and I answered all questions. DETAILS OF PROCEDURE: After we identified the patient and verified the procedure, we brought in the patient to the OR, put the patient in the supine position on the OR table. The patient received SCDs on bilateral legs to prevent DVT. Also, the patient received 2 grams of Ancef IV for prophylactic antibiotic. The patient received general anesthesia without difficulty. The abdomen was prepped and draped in routine sterile fashion after timeout. I injected the local anesthesia by using 1% lidocaine mixed with 0.5% Marcaine around the umbilical area. Umbilical hernia was not reducible. At this moment, we made a transverse above umbilical incision and reached the fascial layer. We mobilized the umbilicus. Then we found the patient had an incarcerated umbilical hernia. The hernia contained omental fat. At this moment, we completely reduced the omental fat back to the abdominal cavity. We used a finger and found the patient had one omental mass just above umbilicus about 2 cm above the umbilicus. At this moment, I decided to make a midline incision 2 cm extent, and then opened the fascia, opened peritoneum. We found the patient had a 1-inch omental mass. The omental mass is size about 1.8 x 1.8 cm, is red color, has hard tissue, and could be endometrial tissue, or benign old tumor. At this moment, we used the Harmonic to take down this mass, rechecked, no active bleeding. Again, the mass about 1.8 x 1.8 cm, this is an omental mass. The omental, no active bleeding at this moment. We closed the omental defect by using 2-0 Vicryl and now we were back to the umbilical hernia, umbilical hernia size about 1.5 x 1.5 cm. Then, I decided to close the incision fascial layer by using #1 Ethibond suture interruptedly and also we closed the umbilical hernia by using #1 Ethibond interruptedly, tied each suture one by one, all incisions closed nicely, no tension. Hemostasis obtained. Then I closed subcutaneous layer by using 2-0 Vicryl interruptedly and used 2-0 Vicryl and reattached the umbilical back to the fascial layer. Then, we used stapler to close the skin. Then, we put the dressing on. The patient tolerated the procedure well. All the instrument, needle and sponge counts were correct x2 at the end of the case. The patient was transferred to recovery room in stable condition and after the procedure I did talk to the patient and the patient's family member about the OR finding and the procedure we did, they understand. Job ID: [id number] [facility]
[2021-06-17] MEDS: oxyCODONE/ACETAMINOPHEN 5mg/325mg TAB PO PRN (23:53)
[2021-06-18] MEDS: ceFAZolin 2000MG 2,000 MG/15 ML SYR IV SCH ×2 (02:25→11:42)
[2021-06-18] MEDS: oxyCODONE/ACETAMINOPHEN 5mg/325mg TAB PO PRN ×2 (03:59→08:28)
--- NOTE | 2021-06-18 08:29 | Surgery Progress Note ---
Date of Service June 18, 2021 Assessment & Plan (1) Abdominal pain: Plan: see below (2) Incarcerated umbilical hernia: Plan: pt is a40 year-old female who presents to ER with one week history periumbilical pain, IMP: incarcerated umbilical hernia, plan, I recommend to do open repair umbilical hernia possible with mesh, D/W benefits, risks and alternatives of the surgery, the risks - infection, bleeding, hernia recurrence, injury other organs, bowel obstruction, complications relate to mesh, may need more procedure such as EGD to R/O gastric ulcer disease, pt understood, she agrees with the surgery, she signed informed consent, I answered all questions, pre-op antibiotic, 06/18/2021 8:32AM F/U S/P open repair incarcerated umbilical hernia, resection omental mass, POD 1, I update about OR finding and the procedure pt had, pathology pending, pt understood, I answered all questions, pt had right breast cancer history, pt is doing better, tolerated diet, pt wants to go home, the post-op care instruction was given, F/U me 1-2 weeks, Admission and Anticipated Discharge Date Admission Date: June 17, 2021 Subjective F/U S/P open repair incarcerated umbilical hernia and resection omental mass, POD 1 pt feels better, less abdominal pain, toleratedd diet, no nausea, no vomiting, Review of Systems Constitutional: as per Subjective / HPI Eyes: as per Subjective / HPI Respiratory: as per Subjective / HPI Cardiovascular: as per Subjective / HPI Gastrointestinal: as per Subjective / HPI Genitourinary: S/P Diagnosis laparoscopy, right breast cancer S/P bilateral mastectomy, in 2014 Musculoskeletal: as per Subjective / HPI Neurologic: as per Subjective / HPI Psychiatric: as per Subjective / HPI Endocrine: as per Subjective / HPI Hematologic / Lymphatic: as per Subjective / HPI Physical Exam Constitutional: WD/WN, vitals as above Eyes: PERRL, conjunctivae normal, anicteric sclerae Neck: trachea midline, no thyromegaly Respiratory: normal respiratory effort, lungs clear to auscultation Cardiovascular: RRR, no murmur, no edema Gastrointestinal (Abdomen): Percussion/Palpation: abdomen soft soft, mild tenderness at incision site, no rebound pain, no distend, incision intact, no redness, Musculoskeletal: no cyanosis or clubbing, extremities motor strength 5/5 Neurologic: patellar DTR's 2+ bilat, sensation intact Psychiatric: A+Ox3, euthymic affect Results & Data ([facility]) Vital Signs (Past 12 Hours) Vital Signs Temp Pulse Pulse Resp BP Pulse Ox 06/18/21 07:35 36.8 C 70 18 101/64 95 06/18/21 03:32 36.5 C 83 17 125/76 95 06/18/21 00:15 36.3 C L 65 17 135/91 98 06/17/21 23:15 36.5 C 63 20 136/83 98 06/17/21 22:15 60 14 120/80 98 06/17/21 21:45 36.4 C L 71 16 115/70 98 06/17/21 21:30 36.8 C 69 16 149/84 H 96 06/17/21 21:15 36.8 C 69 16 149/84 H 96 06/17/21 20:50 96 H 16 139/75 97 06/17/21 20:40 70 12 146/87 H 95 06/17/21 20:30 73 18 127/83 95 Laboratory Results Abnormal lab results 06/17/21 06/17/21 Range/Units 12:55 15:14 RBC 4.18 L (4.2-5.4) M/uL RDW Std Deviation 48.4 H (36.4-46.3) fL Ur Specific [place] > 1.045 H (1.000-1.030) Urine Blood 3+ H (Negative) Ur Leukocyte Esterase Trace H (Negative) Urine WBC (Auto) 10-30 H (0-5) /hpf Urine RBC (Auto) >30 H (0-4) /hpf U Epithel Cells (Auto) >30 H (0-5) /lpf (1) Abdominal pain Abdominal location: generalized Qualified Code(s): R10.84 - Generalized abdominal pain
[2021-06-18 08:52] LABS: Basophils # (auto) 0.01 K/uL (0-0.2); Basophils % (auto) 0.1 %; Hematocrit (blood only) 39.3 % (37-47); Hemoglobin 12.9 g/dL (12.0-16.0); Immature Granulocytes # (auto) 0.02 K/uL (0.00-0.02); Immature Granulocytes % (auto) 0.2 %; Lymphocytes # (auto) 1.52 K/uL (1.2-3.4); Lymphocytes % (auto) 13.3 %; Mean Corpuscular Hemoglobin 30.4 pg (25-34); Mean Corpuscular Hgb Conc 32.8 g/dL (32-36); Mean Corpuscular Volume 92.7 fL (80-100); Mean Platelet Volume 10.6 fL (7.4-10.4); Monocytes # (auto) 0.25 K/uL (0.11-0.59); Monocytes % (auto) 2.2 %; Neutrophils # (auto) 9.64 K/uL (1.4-6.5); Neutrophils % (auto) 84.2 %; Platelet Count 295 K/uL (130-400); RDW Coefficient of Variation 14.8 % (11.5-14.5); RDW Standard Deviation 49.7 fL (36.4-46.3); Red Blood Count 4.24 M/uL (4.2-5.4); White Blood Count 11.44 K/uL (4.8-10.8)
[2021-06-18] MEDS ORDERED: CEROVITE ADV FORMULA TAB PO SCH (09:00)
[2021-06-18] MEDS ORDERED: FAMOTIDINE 40 MG TABLET PO SCH (09:00)
--- NOTE | 2021-06-18 09:31 | Discharge Summary (DS) ---
DATE OF DISCHARGE: 06/18/2021. ADMISSION DIAGNOSIS: Abdominal pain, incarcerated umbilical hernia. DISCHARGE DIAGNOSIS: Incarcerated umbilical hernia, omental mass. PROCEDURE: Open repair of incarcerated umbilical hernia, resection of omental mass. SURGEON: Sariah Stanley MD DETAILS OF DISCHARGE SUMMARY: This is a 40-year-old female who presented to the ED with a 1-week history of paraumbilical pain and the patient had a CT scan diagnosis of omental fat infarction on clinical exam and confirmed the patient had an incarcerated umbilical hernia. I recommended to do open repair of incarcerated umbilical hernia and we took the patient to the OR. We did open repair of incarcerated umbilical hernia. During the procedure, we found the patient had omental mass. The mass size about 1.8 x 1.8 and I resected the omental mass. Then we did primary closure of the abdominal incision and umbilical hernia. The patient tolerated the procedure well. After the procedure, the patient was transferred to regular floor and doing fine, tolerating diet, no nausea, no vomiting. PHYSICAL EXAMINATION: VITAL SIGNS: Temperature is 36.8, respiratory rate 18, heart rate 70, blood pressure 102/64, O2 saturation 95% on room air. GENERAL: The patient is alert, awake, oriented x3. HEENT: Within normal limitation. NEUROLOGIC: Intact. NECK: No JVD. CHEST: Bilateral lung sounds clear. HEART: Normal S1 and S2. No murmur. ABDOMEN: Soft, nondistended, mild tenderness on the incision site. Incision intact. No redness. Bowel sounds positive. EXTREMITIES: No edema. The patient's all the labs within normal limits and the patient wanted to go home today. Gave the patient postop care instruction. The omental mass pathology is still pending. I also updated information about the OR finding and the procedure we did, the patient understands. I will follow the patient in 1 or 2 weeks in my office. The patient understands. Job ID: [id number] [id number]
[2021-06-18] MEDS: LACTATED RINGER'S 1,000 ML IV SCH (11:14)
== END 2021-06-18 11:30 | disposition home or self-care (01) ==
LOC: ED 12:15 → 3N 18:40 → OR 18:40